=== PATIENT | female | born 1930 | race Caucasian/White ===

== ENCOUNTER 2019-07-01 16:42 | Inpatient (IN) | payer MEDICARE ==
[~2019-07-01] VITALS: Ht 162.6 cm; Wt 65.1 kg
--- OUTSIDE RECORDS SUMMARY | 2019-07-01 16:52 | XMS REPORT | Summary of Care ---
Author Author Betsy Rangel M.A. Unknown Address Unknown Phone Unavailable Care Team Providers Care Clockmaker Apprentice Name Role Phone ARYA Chew, MC Unavailable Unavailable NICOLA JAIN M.D., YESSY Unavailable Unavailable ROSARIO Chew, AMBER Unavailable Unavailable ADILENE BERNSTEIN, MARY BROWN Unavailable Unavailable COLTON Chew, YANI Unavailable Unavailable ОЛЕГ BERNSTEIN, GORDY Unavailable Unavailable Unavailable Unavailable Functional Status Name Dates Details Functional status health issues are not documented Status: Name Dates Details Cognitive status health issues are not documented Status: Problems Name Dates Details 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 Active Vitamin B12 TABS TAKE 1 TABLET DAILY DIRECTED. * Refills: 0 Active Vitamin D CAPS TAKE 1 CAPSULE DAILY * Refills: 0 Active Folic Acid 1 MG Oral Tablet TAKE 1 TABLET DAILY. * Refills: 0 Active Synthroid 200 MCG Oral Tablet TAKE 1 TABLET DAILY. * Refills: 0 Active Methotrexate 2.5 MG Oral Tablet TAKE 8 TABLET DAILY * Refills: 0 Active predniSONE 5 MG Oral Tablet TAKE 1 TABLET DAILY * Refills: 0 Active Colchicine 0.6 MG Oral Tablet TAKE 1 TABLET DAILY DIRECTED. * Refills: 0 * Start : 06-Jul-2014 Active Clopidogrel Bisulfate 75 MG Oral Tablet TAKE 1 TABLET BY MOUTH DAILY * Quantity: 90 Refills: 1 MC KOENIG M.D. * Start : 02-Feb-2012 Active Edarbi 40 MG Oral Tablet TAKE 1 TABLET DAILY. * Refills: 0 YESSY CONNER M.D. * Start : 22-Jan-2017 Active Furosemide 20 MG Oral Tablet TAKE 1 TABLET EVERY MORNING * Quantity: 90 Refills: 1 MC KOENIG M.D. * Start : 22-Jan-2017 Active Valsartan 160 MG Oral Tablet TAKE 1 TABLET EVERY MORNING * Quantity: 30 Refills: 1 MC KOENIG M.D. * Start : 09-Apr-2017 Active Gabapentin 400 MG Oral Capsule * Refills: 0 * Start : 05-Aug-2017 Active Sertraline HCl - 50 MG Oral Tablet * Refills: 0 Active Allergies and Adverse Reactions Name Dates Details Erythromycin Derivatives (Allergy) Status: Active Penicillins (Allergy) Status: Active Past Medical History Name Dates Details History of carotid artery stenosis (V12.59, Z86.79) Status: Resolved History of essential hypertension (V12.59, Z86.79) Status: Resolved History of hypothyroidism (V12.29, Z86.39) Status: Resolved History of mitral valve prolapse (V12.59, Z86.79) Status: Resolved History of Renal Insufficiency (593.9) Status: Resolved History of Rheumatoid arthritis (714.0, M06.9) Status: Resolved History of Stroke syndrome Status: Resolved Procedures Procedure Dates Details History of Knee Surgery Right Completed Immunization Name Dates Details Immunizations not documented Family History Name Dates Details Family history of Cancer Comments: Family History Status: Active Name Dates Details Family history of Hypertension (V17.49) Status: Active Social History Name Dates Details Unknown if ever smoked Vital Signs Date Test Result Details :20 BP Systolic 172 mm[Hg] Status: Comments: Location: [facility]; Position: Sitting BP Diastolic 94 mm[Hg] Status: Comments: Location: [facility]; Position: Sitting :19 BP Systolic 170 mm[Hg] Status: Comments: Location: [facility]; Position: Sitting BP Diastolic 80 mm[Hg] Status: Comments: Location: [facility]; Position: Sitting Height 65 in Status: Weight 161 lb Status: Body Mass Index Calculated 26.79 kg/m2 Status: Body Surface Area Calculated 1.8 m2 Status: Heart Rate 92 /min Status: Results Date Description Value Details Results not documented Plan of Care Name Dates Details Planned Observations Planned Goals not documented Interventions Provided Discussion/Summary* PLAN: * Ms. HARRY MALONEY is an 89-yo F h/o HTN, HLD, CVA 2008, nonobstructive carotid disease, RA who presents for follow up. * 1. Hypertension * -continue valsartan 160 daily, azilsartan?? * 2. Carotid Artery Disease (30% LEONARD & 50% LICA by angio in 2015) * -continue asa, plavix, ??statin?? * 3. DLP * -LDL? * -statin? * ??PPM * RTC 6 mo Instructions Name Dates Details Instructions not documented Encounters Appointment; MC KOENIG M.D. Encounter Diagnosis: Problem not documented On: 24-Jun-2017 9:10 Appointment; MC KOENIG M.D. Encounter Diagnosis: Problem not documented On: 05-Aug-2017 9:30 Appointment; MC KOENIG M.D. Encounter Diagnosis: Problem not documented On: 16-Dec-2017 14:00 Appointment; MC KOENIG M.D. Encounter Diagnosis: Problem not documented On: 22-Mar-2018 10:40 Appointment; MC KOENIG M.D. Encounter Diagnosis: Problem not documented On: 19-Jul-2018 9:40 Appointment; AMBER PONCE M.D. Encounter Diagnosis: Problem not documented On: 25-Nov-2018 9:40 Appointment; AMBER PONCE M.D. Encounter Diagnosis: Problem not documented On: 21-Mar-2019 15:00
[2019-07-01 18:11] LABS: BASOPHILS % 0.3 % (0.0-1.0); EOSINOPHILS # (AUTO) 0.2 (0.0-0.4); EOSINOPHILS % 1.6 % (0.0-6.0); HEMATOCRIT 25.9 % (34.2-44.1); HEMOGLOBIN 8.1 g/dL (12.0-16.0); LYMPHOCYTES # (AUTO) 0.8 (1.0-3.2); MEAN CORPUSCULAR HEMOGLOBIN 34.5 pg (28-32); MEAN CORPUSCULAR HGB CONC 31.3 g/dL (31-35); MEAN CORPUSCULAR VOLUME 110.2 fL (81-99); MONOCYTES # (AUTO) 0.7 (0.2-0.8); MONOCYTES % 5.3 % (4.4-11.3); NEUTROPHILS % 86.3 % (38.7-80.0); PLATELET COUNT 224 x10e3/uL (140-360); RED BLOOD COUNT 2.35 x10e6/uL (3.6-5.1); RED CELL DISTRIBUTION WIDTH 15.7 % (11.7-14.4)
--- NOTE | 2019-07-01 18:18 | Diagnostic Imaging Report ---
EXAMINATION: CHEST SINGLE (PORTABLE) INDICATION: Shortness of breath. Kidney failure ^ERMD ORDER ^[id number] ^1750 ^Y COMPARISON: None FINDINGS: TUBES and LINES: None. LUNGS: Ill-defined opacity most pronounced in the left lung could be due to developing pneumonia in the appropriate clinical context. PLEURA: No pleural effusion or pneumothorax. HEART AND MEDIASTINUM: Tortuous thoracic aorta. Heart prominent in size. BONES AND SOFT TISSUES: No acute osseous lesion. Soft tissues are unremarkable. UPPER ABDOMEN: No free air under the diaphragm. IMPRESSION: Ill-defined opacity most pronounced in the left lung could be due to developing pneumonia in the appropriate clinical context. Tortuous thoracic aorta. Heart prominent in size Signed by: Dr. Siva Carrasco M.D. on 07/01/2019 6:15 PM
[2019-07-01 18:21] LABS: INR 1.4; PROTHROMBIN TIME 18.1 seconds (11.9-14.5)
[2019-07-01 18:22] LABS: PARTIAL THROMBOPLASTIN TIME 35.2 seconds (23.8-35.5)
[2019-07-01 18:24] LABS: CLARITY,URINE SL CLOUDY (CLEAR); COLOR,URINE YELLOW (YELLOW); LEUKOCYTE ESTERASE ,URINE MODERATE (NEGATIVE); NITRITE,URINE NEGATIVE (NEGATIVE)
[2019-07-01 18:25] LABS: BILIRUBIN,URINE NEGATIVE (NEGATIVE); KETONES,URINE NEGATIVE (NEGATIVE); PROTEIN,URINE DIPSTICK NEGATIVE (NEGATIVE); URINE UROBILINOGEN 0.2 mg/dL (0.2 - 1)
[2019-07-01 18:30] LABS: ALBUMIN 2.4 g/dL (3.5-5.0); ALBUMIN/GLOBULIN RATIO 0.6 (0.8-2.0); ANION GAP 12.3 mmol/L (8-16); CALCIUM 8.8 mg/dL (8.4-10.2); CREATININE, SERUM 2.47 mg/dL (0.57-1.11); POTASSIUM 3.3 mmol/L (3.5-5.1)
[2019-07-01 18:36] LABS: CREATINE KINASE MB 3.4 ng/mL (0-5.0)
[2019-07-01 18:43] LABS: BACTERIA,URINE MANY /HPF; WBC,URINE (MAN) >50 /HPF (0-5)
[2019-07-01] MEDS ORDERED: VANCOMYCIN 1GM/NS 250 ML 250 ML IV STA (18:51)
[2019-07-01] MEDS ORDERED: CEFEPIME HCL 1 GM VIAL IV SCH (19:00)
--- NOTE | 2019-07-01 19:01 | NUR ---
report given to Chaim DURAN
[2019-07-01] MEDS: CEFEPIME 1GM/NS 0.9% 50 ML 50 ML IV SCH (19:23)
[2019-07-01] MEDS ORDERED: SYNTHROID100 MCG PO (20:24)
[2019-07-01] MEDS ORDERED: PLAVIX75 MG PO (20:24)
[2019-07-01] MEDS ORDERED: AMLODIPINE BESY10 MG PO (20:24)
[2019-07-01] MEDS ORDERED: MIRTAZAPINE15 MG PO (20:24)
[2019-07-01] MEDS ORDERED: ASPIRIN CHEW81 MG PO (20:24)
[2019-07-01] MEDS ORDERED: AMIODARONE HCL200 MG PO (20:24)
[2019-07-01] MEDS ORDERED: GABAPENTIN300 MG PO (20:24)
[2019-07-01] MEDS ORDERED: CARVEDILOL12.5 MG PO (20:24)
[2019-07-01] MEDS ORDERED: ALLOPURINOL100 MG PO (20:24)
[2019-07-01] MEDS ORDERED: ELIQUIS5 MG PO (20:24)
[2019-07-01] MEDS ORDERED: SERTRALINE HCL50 MG PO (20:35)
[2019-07-01] MEDS ORDERED: POTASSIUM CHLO20 ME2 PO (20:35)
[2019-07-01] MEDS ORDERED: PREDNISONE5 MG PO (20:35)
--- NOTE | 2019-07-01 21:40 | NUR ---
Patient arrived to the unit from ED as a new admit (dx of HCAP, Renal Failure, UTI). Pt confused and alert only to self or non at all. Unable to answer questions correctly and attempting to pull out medical devices (e.g. IV, Ashraf. tele monitor, etc.). Will attempt to call Dr. Fraser to obtain agitation med orders and possibly a sitter order to preserve patient's safety. Bed alarm active (level 2). Will monitor closely.
[2019-07-01 21:50] VITALS: BP 133/67
[2019-07-01 22:00] VITALS: BP 133/67
--- NOTE | 2019-07-01 22:16 | NUR ---
Spoke with Dr. Fraser and informed about patient's confused condition and attempting to remove medical devices. MD aware and ordered sitter (1:1 care) and Ativan 0.5 mg IV Q4hr prn. Staff Nuclear Weapons Officer (Lily) aware and already called in Concetta Tarango (PERFUMER) to sit with pt tonight.
[2019-07-01] MEDS: LORAZEPAM INJ 2 MG/ML VIAL IV PRN (22:45)
[2019-07-02] VITALS (8 sets, daily range): BP systolic 92–122; BP diastolic 46–65
[2019-07-02 04:14] LABS: CREATINE KINASE MB 3.2 ng/mL (0-5.0)
[2019-07-02] MEDS: LEVOTHYROXINE SODIUM 100 MCG TAB PO SCH (06:00)
--- NOTE | 2019-07-02 07:30 | NUR ---
PATIENT IN BED RESTING WITH NO S/S OF DISTRESS. O2 IN PLACE VIA N/C. 1:1 SITTER AT BED SIDE. TURNER CATHETER WITH CLOUDY URINE. BED IN LOWER POSITION, CALL LIGHT AT REACH.
[2019-07-02] MEDS ORDERED: SODIUM CHLORIDE 0.9% 250ML 250 ML ONE (09:33)
[2019-07-02] MEDS: CLOPIDOGREL BISULFATE 75 MG TAB PO SCH (09:50)
[2019-07-02] MEDS: SERTRALINE HCL 50 MG TAB PO SCH (09:50)
[2019-07-02] MEDS: CEFEPIME 1GM/NS 0.9% 50 ML 50 ML IV SCH ×2 (09:50→20:48)
[2019-07-02] MEDS: ASPIRIN 81 MG CHEW TAB PO SCH (09:50)
[2019-07-02] MEDS: AMIODARONE HCL 200 MG TAB PO SCH ×2 (09:50→17:00)
[2019-07-02] MEDS: APIXABAN 5 MG TABLET PO SCH ×2 (09:50→17:00)
[2019-07-02] MEDS: PREDNISONE 5 MG TAB PO SCH (09:50)
[2019-07-02] MEDS: ALLOPURINOL 100 MG TAB PO SCH (09:50)
--- NOTE | 2019-07-02 11:17 | NUR ---
PATIENT IN BED RESTING WITH NO S/S OF DISCOMFORT. 1:1 SITTER AT BED SIDE.
[2019-07-02 11:36] LABS: BASOPHILS % 0.3 % (0.0-1.0); EOSINOPHILS # (AUTO) 0.5 (0.0-0.4); EOSINOPHILS % 4.5 % (0.0-6.0); HEMATOCRIT 23.7 % (34.2-44.1); HEMOGLOBIN 7.4 g/dL (12.0-16.0); LYMPHOCYTES # (AUTO) 0.7 (1.0-3.2); LYMPHOCYTES % 6.9 % (18.0-39.1); MEAN CORPUSCULAR HEMOGLOBIN 34.1 pg (28-32); MEAN CORPUSCULAR HGB CONC 31.2 g/dL (31-35); MEAN CORPUSCULAR VOLUME 109.2 fL (81-99); MONOCYTES # (AUTO) 0.7 (0.2-0.8); MONOCYTES % 7.3 % (4.4-11.3); NEUTROPHILS # (AUTO) 8.1 (2.1-6.9); NEUTROPHILS % 80.5 % (38.7-80.0); PLATELET COUNT 206 x10e3/uL (140-360); RED BLOOD COUNT 2.17 x10e6/uL (3.6-5.1); RED CELL DISTRIBUTION WIDTH 15.6 % (11.7-14.4)
[2019-07-02 12:00] LABS: CREATINE KINASE MB 2.7 ng/mL (0-5.0)
[2019-07-02 12:17] LABS: ALBUMIN 2.2 g/dL (3.5-5.0); ALBUMIN/GLOBULIN RATIO 0.6 (0.8-2.0); ANION GAP 12.9 mmol/L (8-16); CALCIUM 8.4 mg/dL (8.4-10.2); CREATININE, SERUM 2.23 mg/dL (0.57-1.11); MAGNESIUM 1.9 MG/DL (1.3-2.1)
[2019-07-02 12:18] LABS: POTASSIUM 2.9 mmol/L (3.5-5.1)
[2019-07-02] MEDS ORDERED: SODIUM CHLORIDE 0.9% 1000ML 1,000 ML ONE (13:19)
[2019-07-02] MEDS ORDERED: POTASSIUM CHLORIDE 10MEQ/100ML 100 ML IV ONE ×4 (13:30→19:30)
--- NOTE | 2019-07-02 15:29 | NUR ---
SPOKE WITH MD REGARDING ABNORMAL POTASSIUM LEVEL. NEW ORDER RECEIVED AND IMPLEMENTED.
--- NOTE | 2019-07-02 17:02 | NUR ---
Nutrition Screen Note RD Recommendation for Physician: -Continue cardiac diet as ordered -If PO continues <50% for the next 2 days, rec Ensure Enlive BID to increase protein-calorie intake if pt is agreeable -Rec MVI w/ vitamin C for wound healing (if stage II pressure wound is confirmed by wound care team) Plan of Care: RD following, monitoring for tolerance and adequacy Nutrition reason for involvement: Diagnosis - Stage II sacral wound Primary Diagnose(s): HCAP, renal failure PMH: none indicated in chart Ht: 64in Wt: 118lb BMI: 20.3kg/m2 IBW: 120lb +/- 10% RD Assessment: (07/01) Chart reviewed. Labs and meds reviewed. 89yo F, who was admitted for HCAP and renal failure. K was low at 2.9 and pt received KCl. Visited pt in the room. Pt was asleep. Per RN, pt was confused, agitated and refused meals. Sitter was present on bedside. No vomiting episode noted. Wound was consulted for stage II sacral ulcer. Will need to re-assess pt when her mental status improved. Please consult as needed. Current Diet: ADA diet Malnutrition Evaluation (07/02/19) The patient does not meet criteria for a specified degree of malnutrition at this time. Will re-evaluate at follow-up as appropriate. Diet Education Needs Assessment: Diet education not indicated. Nutrition Care Level: low Signed: Liz Mukherjee, MS, RD, LD
--- NOTE | 2019-07-02 19:00 | NUR ---
Recieved pt in bed alseep, easily arousable. no s/sx of distress noted. IV K+ infusing w/o difficulty. Ashraf cath patent and below bladder, bed low, call mejia in reach.
[2019-07-02] MEDS: GABAPENTIN 300 MG CAP PO SCH (20:26)
[2019-07-02] MEDS: MIRTAZAPINE 15 MG TAB PO SCH (20:26)
--- NOTE | 2019-07-02 21:11 | NUR ---
Pt awake in bed, asking for fried pork chops and green beans. Fed per staff dinner hector marie w/o diff
--- NOTE | 2019-07-02 22:14 | NUR ---
Recieved call from pt granddaughter, per family pt is to be DNR. Granddaughter to notify POA ([place], Opal daughter / Ash, Huy son) to fax paperwork (POA) and to request DNR change. will notify md in am
[2019-07-02] MEDS: LORAZEPAM INJ 2 MG/ML VIAL IV PRN (23:40)
[2019-07-03] VITALS (8 sets, daily range): BP systolic 107–135; BP diastolic 41–72
[2019-07-03] MEDS: LEVOTHYROXINE SODIUM 100 MCG TAB PO SCH (05:29)
--- NOTE | 2019-07-03 07:23 | NUR ---
ASSUMED CARE. RESTING IN BED WITH EYES CLOSED. ACYANOTIC. BILATERAL RISE AND FALL OF CHEST NOTED WITH EACH RESPIRATION. NO DISTRESS NOTED. BED ALARM ARMED.
[2019-07-03 07:37] LABS: BASOPHILS # (AUTO) 0.1 (0.0-0.1); BASOPHILS % 0.6 % (0.0-1.0); EOSINOPHILS # (AUTO) 0.5 (0.0-0.4); HEMATOCRIT 24.8 % (34.2-44.1); HEMOGLOBIN 7.6 g/dL (12.0-16.0); LYMPHOCYTES # (AUTO) 0.9 (1.0-3.2); MEAN CORPUSCULAR HEMOGLOBIN 34.7 pg (28-32); MEAN CORPUSCULAR HGB CONC 30.6 g/dL (31-35); MEAN CORPUSCULAR VOLUME 113.2 fL (81-99); MONOCYTES # (AUTO) 0.9 (0.2-0.8); MONOCYTES % 8.4 % (4.4-11.3); NEUTROPHILS # (AUTO) 8.3 (2.1-6.9); NEUTROPHILS % 77.5 % (38.7-80.0); PLATELET COUNT 204 x10e3/uL (140-360); RED BLOOD COUNT 2.19 x10e6/uL (3.6-5.1); RED CELL DISTRIBUTION WIDTH 15.9 % (11.7-14.4)
[2019-07-03 07:57] LABS: ALBUMIN 2.2 g/dL (3.5-5.0); ALBUMIN/GLOBULIN RATIO 0.6 (0.8-2.0); ANION GAP 11.6 mmol/L (8-16); CALCIUM 8.7 mg/dL (8.4-10.2); CREATININE, SERUM 2.01 mg/dL (0.57-1.11); MAGNESIUM 1.9 MG/DL (1.3-2.1); POTASSIUM 3.6 mmol/L (3.5-5.1)
[2019-07-03] MEDS: CEFEPIME 1GM/NS 0.9% 50 ML 50 ML IV SCH ×2 (10:00→22:26)
[2019-07-03] MEDS: SERTRALINE HCL 50 MG TAB PO SCH (10:00)
[2019-07-03] MEDS: ALLOPURINOL 100 MG TAB PO SCH (10:00)
[2019-07-03] MEDS: AMIODARONE HCL 200 MG TAB PO SCH ×2 (10:00→16:38)
[2019-07-03] MEDS: PREDNISONE 5 MG TAB PO SCH (10:00)
[2019-07-03] MEDS: ASPIRIN 81 MG CHEW TAB PO SCH (10:00)
[2019-07-03] MEDS: CLOPIDOGREL BISULFATE 75 MG TAB PO SCH (10:00)
[2019-07-03] MEDS: APIXABAN 5 MG TABLET PO SCH ×2 (10:00→17:13)
--- NOTE | 2019-07-03 19:24 | NUR ---
REPORT RECEIVED BY ONCOMING NURSE.
--- NOTE | 2019-07-03 19:25 | NUR ---
RECEIVED REPORT FROM DAY NURSE. PATIENT IS RESTING COMFORTABLY IN THE BED. BED IS IN THE LOWEST POSITION AND CALL LIGHT IS WITHIN REACH. WILL CONTINUE TO MONITOR PATIENT.
[2019-07-03] MEDS: GABAPENTIN 300 MG CAP PO SCH (22:26)
[2019-07-03] MEDS: MIRTAZAPINE 15 MG TAB PO SCH (22:26)
[2019-07-04] VITALS (7 sets, daily range): BP systolic 105–124; BP diastolic 43–89
[2019-07-04 05:44] LABS: BASOPHILS % 0.4 % (0.0-1.0); EOSINOPHILS # (AUTO) 0.4 (0.0-0.4); EOSINOPHILS % 4.7 % (0.0-6.0); HEMOGLOBIN 7.6 g/dL (12.0-16.0); LYMPHOCYTES # (AUTO) 0.8 (1.0-3.2); MEAN CORPUSCULAR HEMOGLOBIN 34.1 pg (28-32); MEAN CORPUSCULAR HGB CONC 30.4 g/dL (31-35); MEAN CORPUSCULAR VOLUME 112.1 fL (81-99); MONOCYTES # (AUTO) 0.6 (0.2-0.8); MONOCYTES % 6.2 % (4.4-11.3); NEUTROPHILS # (AUTO) 7.4 (2.1-6.9); NEUTROPHILS % 79.2 % (38.7-80.0); PLATELET COUNT 226 x10e3/uL (140-360); RED BLOOD COUNT 2.23 x10e6/uL (3.6-5.1); RED CELL DISTRIBUTION WIDTH 15.9 % (11.7-14.4)
[2019-07-04 06:02] LABS: ALBUMIN 2.1 g/dL (3.5-5.0); ALBUMIN/GLOBULIN RATIO 0.5 (0.8-2.0); ALKALINE PHOSPHATASE 46 IU/L (40-150); ANION GAP 9.8 mmol/L (8-16); BLOOD UREA NITROGEN 37 mg/dL (7-26); BUN/CREATININE RATIO 20 (6-25); CALCIUM 8.9 mg/dL (8.4-10.2); CARBON DIOXIDE 30 mmol/L (22-29); CHLORIDE 112 mmol/L (98-107); CREATININE, SERUM 1.82 mg/dL (0.57-1.11); EST GLOMERULAR FILTRATION RATE 26 ML/MIN (60-); GLUCOSE 94 mg/dL (74-118); MAGNESIUM 2.1 MG/DL (1.3-2.1); POTASSIUM 3.8 mmol/L (3.5-5.1); SODIUM 148 mmol/L (136-145)
[2019-07-04] MEDS: LEVOTHYROXINE SODIUM 100 MCG TAB PO SCH (06:02)
[2019-07-04 06:04] LABS: ALANINE AMINOTRANSFERASE < 6 IU/L (0-55)
--- NOTE | 2019-07-04 06:28 | NUR ---
PATIENT IS RESTING IN BED. BED IS IN LOWEST POSITION AND CALL LIGHT IS WITHIN REACH.
--- NOTE | 2019-07-04 07:24 | NUR ---
PATIENT IN BED RESTING WITH EYES CLOSED, NO DISTRESS NOTED. TURNER CATHETER DRAINING YELLOW URINE. BED IN LOWER POSITION, CALL LIGHT AT REACH.
[2019-07-04] MEDS: CEFEPIME 1GM/NS 0.9% 50 ML 50 ML IV SCH ×2 (09:23→20:50)
[2019-07-04] MEDS: ASPIRIN 81 MG CHEW TAB PO SCH (09:23)
[2019-07-04] MEDS: AMIODARONE HCL 200 MG TAB PO SCH ×2 (09:23→17:21)
[2019-07-04] MEDS: APIXABAN 5 MG TABLET PO SCH ×2 (09:24→17:21)
[2019-07-04] MEDS: PREDNISONE 5 MG TAB PO SCH (09:24)
[2019-07-04] MEDS: SERTRALINE HCL 50 MG TAB PO SCH (09:24)
[2019-07-04] MEDS: FLUCONAZOLE 100 MG TAB PO SCH (09:24)
[2019-07-04] MEDS: CLOPIDOGREL BISULFATE 75 MG TAB PO SCH (09:24)
[2019-07-04] MEDS: ALLOPURINOL 100 MG TAB PO SCH (09:24)
--- NOTE | 2019-07-04 11:02 | NUR ---
PATIENT REPOSITIONED IN BED, HEEL PROTECTORS REAPPLIED. CALL LIGHT AT REACH.
--- NOTE | 2019-07-04 13:11 | NUR ---
WOUND CARE CONSULT FOR 89 YO FEMALE HX OF HCAP , RENAL FAILURE GIOVANY 16 ON MODERATE PUP STATUS AND INTERVENTIONS AND ALTERNATING PRESSURE MATTRESS LABS: WBC-9.35 HGB_7.6 GLUCOSE-94 SKIN ASSESSMENT COMPLETE PATIENT PRESENTS WITH LEFT HEEL UNSTAGEABLE ULCERATION MEASURES 8CM X 6CM DARK BLACK ESCHAR 90 % YELLOW SLOUGH 10 % SLIGHT SERO SANG DRAINAGE SACRAL STAGE 2 ULCERATION 3CM X 1.5CM X .2 CM SOME YELLOW SLOUGH NOTED TO WOUND BED RECOMMENDATIONS: NURSING TO CONTINUE TO MAINTAIN MODERATE PUP STATUS AND INTERVENTIONS AND ALTERNATING PRESSURE MATTRESS NURSING TO CONTINUE TO ASSIST PATIENT OUT OF BED FOR MEALS AND MUCH TOLERATED NURSING TO CONTINUE TO ASSIST PATIENT NEEDED WITH MEALS AND NUTRITIONAL SUPPLEMENTS TO ENSURE PROPER REQUIREMENTS FOR HEALING NURSING TO CONTINUE TO OFFLOAD FEET AND HEELS NEEDED WITH PILLOW SUSPENSION WHEN IN BED NURSING TO CLEAN LEFT HEEL UNSTAGEABLE ULCERATION AND SACRAL STAGE 2 ULCERATION WITH NORMAL SALINE DAILY AND APPLY SANTYL OINTMENT AND COVER WITH ALLEVYN FOAM DRESSING Addendum: 07/04/19 at 1319 by Kenny Gamino RN Amended: Links added.
--- NOTE | 2019-07-04 15:28 | NUR ---
PATIENT IN BED RESTING WITH NO S/S OF DISTRESS. CALL LIGHT AT REACH.
[2019-07-04] MEDS: COLLAGENASE OINTMENT 30 GM TUBE TP SCH (18:19)
[2019-07-04] MEDS: MIRTAZAPINE 15 MG TAB PO SCH (20:50)
[2019-07-04] MEDS: GABAPENTIN 300 MG CAP PO SCH (20:51)
[2019-07-04] MEDS: LORAZEPAM INJ 2 MG/ML VIAL IV PRN (22:12)
[2019-07-05] VITALS (7 sets, daily range): BP systolic 111–119; BP diastolic 37–64
[2019-07-05 05:49] LABS: BASOPHILS % 0.4 % (0.0-1.0); EOSINOPHILS # (AUTO) 0.6 (0.0-0.4); EOSINOPHILS % 6.4 % (0.0-6.0); HEMATOCRIT 23.1 % (34.2-44.1); HEMOGLOBIN 7.1 g/dL (12.0-16.0); LYMPHOCYTES # (AUTO) 0.9 (1.0-3.2); LYMPHOCYTES % 8.7 % (18.0-39.1); MEAN CORPUSCULAR HEMOGLOBIN 34.5 pg (28-32); MEAN CORPUSCULAR HGB CONC 30.7 g/dL (31-35); MEAN CORPUSCULAR VOLUME 112.1 fL (81-99); MONOCYTES # (AUTO) 0.7 (0.2-0.8); MONOCYTES % 7.4 % (4.4-11.3); NEUTROPHILS # (AUTO) 7.7 (2.1-6.9); NEUTROPHILS % 76.6 % (38.7-80.0); PLATELET COUNT 223 x10e3/uL (140-360); RED BLOOD COUNT 2.06 x10e6/uL (3.6-5.1); RED CELL DISTRIBUTION WIDTH 15.8 % (11.7-14.4)
[2019-07-05 06:06] LABS: ALANINE AMINOTRANSFERASE < 6 IU/L (0-55); ALBUMIN 1.9 g/dL (3.5-5.0); ALBUMIN/GLOBULIN RATIO 0.5 (0.8-2.0); ALKALINE PHOSPHATASE 43 IU/L (40-150); ANION GAP 10.8 mmol/L (8-16); CALCIUM 8.4 mg/dL (8.4-10.2); CARBON DIOXIDE 29 mmol/L (22-29); CHLORIDE 114 mmol/L (98-107); GLUCOSE 97 mg/dL (74-118); POTASSIUM 3.8 mmol/L (3.5-5.1); SODIUM 150 mmol/L (136-145)
[2019-07-05 06:17] LABS: BLOOD UREA NITROGEN 31 mg/dL (7-26); BUN/CREATININE RATIO 18 (6-25)
[2019-07-05] MEDS: LEVOTHYROXINE SODIUM 100 MCG TAB PO SCH (06:17)
--- NOTE | 2019-07-05 07:25 | NUR ---
PATIENT IN BED RESTING WITH NO S/S OF DISCOMFORT. HEEL PROTECTORS IN PLACE, CALL LIGHT AT REACH.
[2019-07-05] MEDS: CLOPIDOGREL BISULFATE 75 MG TAB PO SCH (09:03)
[2019-07-05] MEDS: SERTRALINE HCL 50 MG TAB PO SCH (09:03)
[2019-07-05] MEDS: APIXABAN 5 MG TABLET PO SCH ×2 (09:03→17:22)
[2019-07-05] MEDS: COLLAGENASE OINTMENT 30 GM TUBE TP SCH (09:03)
[2019-07-05] MEDS: PREDNISONE 5 MG TAB PO SCH (09:03)
[2019-07-05] MEDS: AMIODARONE HCL 200 MG TAB PO SCH ×2 (09:03→17:22)
[2019-07-05] MEDS: FLUCONAZOLE 100 MG TAB PO SCH (09:03)
[2019-07-05] MEDS: CEFEPIME 1GM/NS 0.9% 50 ML 50 ML IV SCH ×3 (09:03→21:00)
[2019-07-05] MEDS: ALLOPURINOL 100 MG TAB PO SCH (09:03)
[2019-07-05] MEDS: ASPIRIN 81 MG CHEW TAB PO SCH (09:03)
--- NOTE | 2019-07-05 10:59 | NUR ---
COMPLETE BED BATH GIVEN, LINEN CHANGED. PATIENT REPOSITIONED IN BED. CALL LIGHT AT REACH.
--- NOTE | 2019-07-05 15:20 | NUR ---
PATIENT NOTED WITH RASH TO PERINEAL AREA, MD NOTIFIED, NEW ORDER RECEIVED AND IMPLEMENTED.
[2019-07-05] MEDS: NYSTATIN 15 GM POWDER UD BTL TOP SCH (18:17)
--- NOTE | 2019-07-05 19:15 | NUR ---
Bedside report completed with morning nurse. Pt alert and oriented to name, lying in bed HOB 30 degrees. Denies pain at this time. Call light within reach. Bed low and locked.
[2019-07-05] MEDS: MIRTAZAPINE 15 MG TAB PO SCH ×2 (20:00→21:00)
[2019-07-05] MEDS: GABAPENTIN 300 MG CAP PO SCH (21:00)
[2019-07-06] VITALS: BP 121/80
[2019-07-06 05:59] LABS: BASOPHILS % 0.4 % (0.0-1.0); EOSINOPHILS # (AUTO) 0.8 (0.0-0.4); EOSINOPHILS % 8.4 % (0.0-6.0); HEMATOCRIT 24.7 % (34.2-44.1); HEMOGLOBIN 7.6 g/dL (12.0-16.0); LYMPHOCYTES # (AUTO) 1.2 (1.0-3.2); LYMPHOCYTES % 11.9 % (18.0-39.1); MEAN CORPUSCULAR HEMOGLOBIN 34.9 pg (28-32); MEAN CORPUSCULAR HGB CONC 30.8 g/dL (31-35); MEAN CORPUSCULAR VOLUME 113.3 fL (81-99); MONOCYTES # (AUTO) 0.8 (0.2-0.8); MONOCYTES % 7.8 % (4.4-11.3); NEUTROPHILS # (AUTO) 6.9 (2.1-6.9); PLATELET COUNT 232 x10e3/uL (140-360); RED BLOOD COUNT 2.18 x10e6/uL (3.6-5.1); RED CELL DISTRIBUTION WIDTH 15.6 % (11.7-14.4)
[2019-07-06] MEDS: LEVOTHYROXINE SODIUM 100 MCG TAB PO SCH (06:00)
[2019-07-06 06:23] LABS: ALANINE AMINOTRANSFERASE < 6 IU/L (0-55); ALBUMIN 1.9 g/dL (3.5-5.0); ALBUMIN/GLOBULIN RATIO 0.5 (0.8-2.0); ALKALINE PHOSPHATASE 47 IU/L (40-150); BLOOD UREA NITROGEN 25 mg/dL (7-26); BUN/CREATININE RATIO 15 (6-25); CALCIUM 8.6 mg/dL (8.4-10.2); CARBON DIOXIDE 30 mmol/L (22-29); CHLORIDE 114 mmol/L (98-107); CREATININE, SERUM 1.66 mg/dL (0.57-1.11); EST GLOMERULAR FILTRATION RATE 29 ML/MIN (60-); GLUCOSE 89 mg/dL (74-118); SODIUM 149 mmol/L (136-145)
--- NOTE | 2019-07-06 06:30 | NUR ---
Dr. Fraser new order ensure with meals and bedside swallow eval. Pt lying in bed quietly with eyes closed. No acute distress noted.
--- NOTE | 2019-07-06 07:00 | NUR ---
BEDSIDE SHIFT REPORT FROM CORPORATE PILOT RN. PT DENIES NEEDS AT THIS TIME.
[2019-07-06 08:10] VITALS: BP 105/55
[2019-07-06] MEDS: NYSTATIN 15 GM POWDER UD BTL TOP SCH (08:40)
[2019-07-06] MEDS: FLUCONAZOLE 100 MG TAB PO SCH (08:40)
[2019-07-06] MEDS: COLLAGENASE OINTMENT 30 GM TUBE TP SCH (08:40)
[2019-07-06] MEDS: ASPIRIN 81 MG CHEW TAB PO SCH (08:40)
[2019-07-06] MEDS: CLOPIDOGREL BISULFATE 75 MG TAB PO SCH (08:40)
[2019-07-06] MEDS: AMIODARONE HCL 200 MG TAB PO SCH ×2 (08:40→16:53)
[2019-07-06] MEDS: CEFEPIME 1GM/NS 0.9% 50 ML 50 ML IV SCH (08:40)
[2019-07-06] MEDS: SERTRALINE HCL 50 MG TAB PO SCH (08:40)
[2019-07-06] MEDS: APIXABAN 5 MG TABLET PO SCH ×2 (08:40→16:53)
[2019-07-06] MEDS: ALLOPURINOL 100 MG TAB PO SCH (08:40)
[2019-07-06] MEDS: PREDNISONE 5 MG TAB PO SCH (08:40)
[2019-07-06 09:36] VITALS: BP 105/55
[2019-07-06 11:52] VITALS: BP 110/57
[2019-07-06 16:36] VITALS: BP 147/71
--- NOTE | 2019-07-06 17:15 | NUR ---
CHANGED DIET TEXTURE PER RECOMMENDATIONS OF SPEECH THERAPY TO PUREED.
--- NOTE | 2019-07-06 19:20 | NUR ---
PATIENT RECEIVED INTO MY CARE, BSSR RECEIVED, PT SEEN LYING SUPINE IN BED, AOX1, LEFT SIDED WEAKNESS R/T PREVIOUS CVA NOTED, NO S/SX OF DISTRESS NOTED, BED ALARM ACTIVATED FOR SAFETY DURING ROUNDING, PATIENT REMAINS ON TELEMETRY FOR SAFETY, TURNER IN PLACE FOR URINARY RETENTION, PATIENT ABLE TO SWALLOW PILL CRUSHED WITH APPLESAUCE PER DAYSHIFT RN, BED IN LOWEST POSITION, CALL LIGHT WITHIN REACH
[2019-07-06 20:00] VITALS: BP 144/61
[2019-07-06] MEDS: GABAPENTIN 300 MG CAP PO SCH (20:00)
[2019-07-07] VITALS (12 sets, daily range): BP systolic 111–146; BP diastolic 44–65
[2019-07-07] MEDS: LEVOTHYROXINE SODIUM 100 MCG TAB PO SCH (05:16)
[2019-07-07 06:43] LABS: BASOPHILS % 0.4 % (0.0-1.0); EOSINOPHILS # (AUTO) 0.7 (0.0-0.4); HEMATOCRIT 24.4 % (34.2-44.1); HEMOGLOBIN 7.3 g/dL (12.0-16.0); LYMPHOCYTES % 12.5 % (18.0-39.1); MEAN CORPUSCULAR HEMOGLOBIN 33.8 pg (28-32); MEAN CORPUSCULAR HGB CONC 29.9 g/dL (31-35); MONOCYTES # (AUTO) 0.7 (0.2-0.8); MONOCYTES % 8.5 % (4.4-11.3); NEUTROPHILS # (AUTO) 5.8 (2.1-6.9); PLATELET COUNT 227 x10e3/uL (140-360); RED BLOOD COUNT 2.16 x10e6/uL (3.6-5.1); RED CELL DISTRIBUTION WIDTH 15.4 % (11.7-14.4)
--- NOTE | 2019-07-07 07:00 | NUR ---
BEDSIDE SHIFT REPORT FROM GAS DISTRIBUTION SUPERVISOR RN. PT DENIES NEEDS AT THIS TIME.
[2019-07-07 07:09] LABS: ALANINE AMINOTRANSFERASE < 6 IU/L (0-55); ALBUMIN 1.8 g/dL (3.5-5.0); ALBUMIN/GLOBULIN RATIO 0.5 (0.8-2.0); ALKALINE PHOSPHATASE 49 IU/L (40-150); BLOOD UREA NITROGEN 25 mg/dL (7-26); BUN/CREATININE RATIO 16 (6-25); CALCIUM 8.6 mg/dL (8.4-10.2); CARBON DIOXIDE 32 mmol/L (22-29); CHLORIDE 115 mmol/L (98-107); CREATININE, SERUM 1.55 mg/dL (0.57-1.11); EST GLOMERULAR FILTRATION RATE 32 ML/MIN (60-); GLUCOSE 86 mg/dL (74-118); SODIUM 149 mmol/L (136-145)
--- NOTE | 2019-07-07 07:37 | NUR ---
BEDSIDE SHIFT REPORT GIVEN TO CHAPO LEAD PONY RIDER RN. PT AOX1, NO S/SX OF DISTRESS/PAIN NOTED, SEEN SLEEPING, RESPIRATIONS EVEN AND UNLABORED, REMAIN Q2T TO PREVENT SKIN BREAKDOWN, HEELS FLOATED TO PREVENT SKIN BREAKDOWN, PRESSURE DRESSING TO COCCYX AREA IN PLACE, PT ENCOURAGED OVERNIGHT TO EAT AND DRINK FOR INCREASE NUTRITION; REFUSED TO EAT OR DRINK AT TIMES. CALL LIGHT WITHIN REACH, BED IN LOWEST POSITION
[2019-07-07] MEDS: PREDNISONE 5 MG TAB PO SCH (09:06)
[2019-07-07] MEDS: SERTRALINE HCL 50 MG TAB PO SCH (09:06)
[2019-07-07] MEDS: ALLOPURINOL 100 MG TAB PO SCH (09:06)
[2019-07-07] MEDS: COLLAGENASE OINTMENT 30 GM TUBE TP SCH (09:06)
[2019-07-07] MEDS: FLUCONAZOLE 100 MG TAB PO SCH (09:06)
[2019-07-07] MEDS: ASPIRIN 81 MG CHEW TAB PO SCH (09:06)
[2019-07-07] MEDS: CEFEPIME 1GM/NS 0.9% 50 ML 50 ML IV SCH ×2 (09:06→21:28)
[2019-07-07] MEDS: APIXABAN 5 MG TABLET PO SCH ×2 (09:06→17:03)
[2019-07-07] MEDS: NYSTATIN 15 GM POWDER UD BTL TOP SCH (09:06)
[2019-07-07] MEDS: CLOPIDOGREL BISULFATE 75 MG TAB PO SCH (09:06)
[2019-07-07] MEDS: AMIODARONE HCL 200 MG TAB PO SCH ×2 (09:06→17:03)
--- NOTE | 2019-07-07 20:00 | NUR ---
PATIENT REPOSITIONED IN BED TO INCREASE COMFORT LEVEL, REMAIN ON TELEMETRY WITH CONT PULSE OX . VSS, HEEL PROTECTORS REAPPLIED. CALL LIGHT AT REACH.
[2019-07-07] MEDS: MIRTAZAPINE 15 MG TAB PO SCH (21:29)
[2019-07-07] MEDS: GABAPENTIN 300 MG CAP PO SCH (21:29)
[2019-07-08] VITALS (9 sets, daily range): BP systolic 117–147; BP diastolic 57–83
--- NOTE | 2019-07-08 | NUR ---
PATIENT SEEN RESTING COMFORTABLY IN BED, AWAKE ALERT, NO DISTRESS NOTED, BED BATH GIVEN, RASH NOTED BILATERAL UNDERARM, LEFT SIDE OF NECK, REPOSITIONED ON LEFT SIDE, TOLERATED WELL CALL LIGHT WITHIN REACH, BED ALARM ACTIVATED
--- NOTE | 2019-07-08 06:02 | Progress Note ---
DATE: SUBJECTIVE: The patient did well overnight. No new issues. Still confused, which is apparently her baseline. OBJECTIVE: VITAL SIGNS: Temperature 97.8, pulse 60, blood pressure 117/58, sats 94%. GENERAL: She is in no apparent distress, lying in bed. CARDIOVASCULAR: Regular rate and rhythm. LUNGS: Clear to auscultation bilaterally. ABDOMEN: Good bowel sounds. Soft, nontender. EXTREMITIES: No clubbing or cyanosis. NEUROLOGIC: Moves all extremities x4. ASSESSMENT AND PLAN: 1. Urinary tract infection. Continue with antibiotics. 2. Chronic kidney disease stage 3. We will check a creatinine. 3. Anemia, stable. We will also check a CBC. 4. Hypernatremia. We will check her CMP, try to encourage the patient to drink more water. 5. Hypothyroidism. Continue with her medication. 6. Anxiety. Continue with her sertraline. 7. History of atrial fibrillation. Continue with her amiodarone. 8. Gout. Continue with her medication. Please see hospital chart for full details. MD SORAYA Katz/RENE /[id number]
[2019-07-08] MEDS: LEVOTHYROXINE SODIUM 100 MCG TAB PO SCH (06:28)
[2019-07-08 06:32] LABS: BASOPHILS % 0.4 % (0.0-1.0); EOSINOPHILS # (AUTO) 0.6 (0.0-0.4); EOSINOPHILS % 6.2 % (0.0-6.0); HEMATOCRIT 25.7 % (34.2-44.1); HEMOGLOBIN 7.7 g/dL (12.0-16.0); LYMPHOCYTES # (AUTO) 1.1 (1.0-3.2); LYMPHOCYTES % 10.4 % (18.0-39.1); MEAN CORPUSCULAR HEMOGLOBIN 33.9 pg (28-32); MEAN CORPUSCULAR VOLUME 113.2 fL (81-99); MONOCYTES # (AUTO) 0.7 (0.2-0.8); MONOCYTES % 7.3 % (4.4-11.3); NEUTROPHILS # (AUTO) 7.6 (2.1-6.9); NEUTROPHILS % 75.1 % (38.7-80.0); PLATELET COUNT 236 x10e3/uL (140-360); RED BLOOD COUNT 2.27 x10e6/uL (3.6-5.1); RED CELL DISTRIBUTION WIDTH 15.2 % (11.7-14.4)
--- NOTE | 2019-07-08 06:54 | NUR ---
BSSR GIVEN TO DAYSHIFT, PT SEEN RESTING IN BED, NO DISTRESS NOTED, BEDBOUND, BED ALARM ACTIVE, CALL LIGHT WITHIN REACH
[2019-07-08 06:55] LABS: ALBUMIN 1.8 g/dL (3.5-5.0); ALBUMIN/GLOBULIN RATIO 0.5 (0.8-2.0); ALKALINE PHOSPHATASE 49 IU/L (40-150); BLOOD UREA NITROGEN 31 mg/dL (7-26); BUN/CREATININE RATIO 19 (6-25); CALCIUM 8.7 mg/dL (8.4-10.2); CARBON DIOXIDE 31 mmol/L (22-29); CHLORIDE 116 mmol/L (98-107); CREATININE, SERUM 1.65 mg/dL (0.57-1.11); EST GLOMERULAR FILTRATION RATE 29 ML/MIN (60-); GLUCOSE 96 mg/dL (74-118); SODIUM 150 mmol/L (136-145)
[2019-07-08 06:56] LABS: ALANINE AMINOTRANSFERASE < 6 IU/L (0-55)
[2019-07-08] MEDS: AMIODARONE HCL 200 MG TAB PO SCH ×2 (10:57→16:29)
[2019-07-08] MEDS: CLOPIDOGREL BISULFATE 75 MG TAB PO SCH (10:57)
[2019-07-08] MEDS: FLUCONAZOLE 100 MG TAB PO SCH (10:57)
[2019-07-08] MEDS: SERTRALINE HCL 50 MG TAB PO SCH (10:57)
[2019-07-08] MEDS: APIXABAN 5 MG TABLET PO SCH ×2 (10:57→16:29)
[2019-07-08] MEDS: PREDNISONE 5 MG TAB PO SCH (10:57)
[2019-07-08] MEDS: NYSTATIN 15 GM POWDER UD BTL TOP SCH (10:57)
[2019-07-08] MEDS: CEFEPIME 1GM/NS 0.9% 50 ML 50 ML IV SCH ×2 (10:57→21:33)
[2019-07-08] MEDS: ALLOPURINOL 100 MG TAB PO SCH (10:57)
[2019-07-08] MEDS: ASPIRIN 81 MG CHEW TAB PO SCH (10:57)
[2019-07-08] MEDS: COLLAGENASE OINTMENT 30 GM TUBE TP SCH (10:57)
[2019-07-08] MEDS ORDERED: SODIUM CHLORIDE 0.9% 50ML 50 ML ONE (11:05)
--- NOTE | 2019-07-08 15:01 | NUR ---
WOUND CARE SCREENING CONSULT FOR 89 YO FEMALE HX OF HCAP , RENAL FAILURE GIOVANY 16 ON MODERATE PUP STATUS AND INTERVENTIONS AND ALTERNATING PRESSURE MATTRESS LABS: WBC-10.10 HGB_7.7 GLUCOSE-96 SKIN ASSESSMENT COMPLETE PATIENT PRESENTS WITH -LEFT HEEL UNSTAGEABLE ULCERATION MEASURES 8CM X 6CM DARK BLACK ESCHAR 95 % YELLOW SLOUGH 5% AND MINIMAL SERO SANG DRAINAGE -SACRAL STAGE 2 ULCERATION 3.1CM X 1.4CM X 0.2 CM RECOMMENDATIONS: CONINTINUE WITH CURRENT WOUND CARE ORDER IN PLACE: NURSING TO CONTINUE TO MAINTAIN MODERATE PUP STATUS AND INTERVENTIONS AND ALTERNATING PRESSURE MATTRESS NURSING TO CONTINUE TO ASSIST PATIENT OUT OF BED FOR MEALS AND MUCH TOLERATED NURSING TO CONTINUE TO ASSIST PATIENT NEEDED WITH MEALS AND NUTRITIONAL SUPPLEMENTS TO ENSURE PROPER REQUIREMENTS FOR HEALING NURSING TO CONTINUE TO OFFLOAD FEET AND HEELS NEEDED WITH PILLOW SUSPENSION WHEN IN BED NURSING TO CLEAN LEFT HEEL UNSTAGEABLE ULCERATION AND SACRAL STAGE 2 ULCERATION WITH NORMAL SALINE DAILY AND APPLY SANTYL OINTMENT AND COVER WITH ALLEVYN FOAM DRESSING. NURSING TO CONSULT WOUND CARE ORDERS NEEDED. Addendum: 07/08/19 at 1504 by Sol Kate RN Amended: Links added.
--- NOTE | 2019-07-08 16:37 | NUR ---
Nutrition Intervention Note RD Recommendation(s) for Physician: -Continue Ensure Enlive TID for added nutrition and recommend Eder BID to promote wound healing -Recommend multivitamin with vitamin C and zinc for wound healing -Continue current diet as ordered Plan of Care: RD following, monitoring for tolerance and adequacy Nutrition reason for involvement: follow up RD Assessment 07/07: Follow up. Chart reviewed. Pt is still confused per MD note. Pt has varied intake ranging from 25-100% of meals and has Ensure TID ordered. Per wound care note, pt has a left heel unstageable ulcer and stage 2 sacral pressure ulcer. Encourage meal and supplement intake. Will continue to monitor. (07/01) Chart reviewed. Labs and meds reviewed. 89yo F, who was admitted for HCAP and renal failure. K was low at 2.9 and pt received KCl. Visited pt in the room. Pt was asleep. Per RN, pt was confused, agitated and refused meals. Sitter was present on bedside. No vomiting episode noted. Wound was consulted for stage II sacral ulcer. Will need to re-assess pt when her mental status improved. Please consult as needed. Principal Problems/Diagnoses: HCAP, renal failure PMH: none indicated in chart GI: last recorded BM 07/06, liquid Skin: Per wound care note, pt has a left heel unstageable ulcer and stage 2 sacral pressure ulcer Labs: (07/07) Na 150, BUN 31, Creat 1.65 Meds: prednisone, levothyroxine Ht: 64 inches Wt: 142 lbs (07/06) 118 lbs (06/30) Suspect weight error BMI: 24.4 kg/m2 IBW: 120 lbs Malnutrition Evaluation (07/02/19) The patient does not meet criteria for a specified degree of malnutrition at this time. Will re-evaluate at follow-up as appropriate. Nutrition Prescription (Diet Order): cardiac diet with Ensure TID Estimated Nutritional Needs: 3505-4413 calories/day (25-35 kcal/kg CBW) 77-97 g protein/day (1.2-1.5 g pro/kg CBW) Diet Adequacy: Not meeting calorie needs, Not meeting protein needs Tolerance: Tolerating PO Diet Education Needs Assessment: Diet education is not indicated Nutrition Care Level: moderate Nutrition Diagnosis: Increased nutrient needs related to increased demand for protein and kcal as evidenced by left heel unstageable pressure ulcer and stage 2 sacral pressure ulcer. Goal: Patient will meet 75-100% of estimated needs by follow up Progress: Progressing Interventions: -fat/cholesterol/sodium -modified diet, Commercial beverage, Multivitamin/mineral supplement therapy Monitoring/Evaluation: -Total energy intake, Total protein intakeModified diet, Liquid supplement, Weight change Signed: Camren Patel RD, LD
[2019-07-08] MEDS: GABAPENTIN 300 MG CAP PO SCH (21:33)
[2019-07-08] MEDS: MIRTAZAPINE 15 MG TAB PO SCH (21:33)
[2019-07-09] VITALS (8 sets, daily range): BP systolic 106–138; BP diastolic 54–92
[2019-07-09] MEDS: LEVOTHYROXINE SODIUM 100 MCG TAB PO SCH (06:31)
--- NOTE | 2019-07-09 06:51 | NUR ---
BSSR GIVEN TO DAYSHIFT, PT SEEN RESTING IN BED, NO DISTRESS NOTED, BEDBOUND, BED ALARM ACTIVE, CALL LIGHT WITHIN REACH
--- NOTE | 2019-07-09 08:46 | Progress Note ---
DATE: SUBJECTIVE: The patient is an 89-year-old, who came in with community-acquired pneumonia, renal failure, urinary tract infection, and history of dementia. MEDICATIONS: Include allopurinol, amiodarone, apixaban, aspirin, cefepime, clopidogrel, fluconazole, mirtazapine, nystatin, prednisone, and sertraline. The patient also has a history of atrial fibrillation. OBJECTIVE: GENERAL: Currently, the patient is alert and oriented x1, arousable, but goes back to sleep. LUNGS: Positive for decreased air entry. CARDIOVASCULAR: The patient has S1, S2. Regular rate and rhythm. ABDOMEN: Nontender and nondistended. EXTREMITIES: No clubbing, no cyanosis, and/or no edema. ASSESSMENT: Community-acquired pneumonia. Continue with antibiotics. The patient is currently on cefepime. Atrial fibrillation, paroxysmal continue on Bactroban and amiodarone. Depression and dementia. Continue on sertraline. She also has a history of gout. We will continue allopurinol for that. Hypothyroidism, continue on levothyroxine. Further recommendation per clinical course. [facility] No COVID testing has been done for her. MD NICOLAS Gama/RENE /[id number]
[2019-07-09] MEDS: NYSTATIN 15 GM POWDER UD BTL TOP SCH (09:00)
[2019-07-09] MEDS: COLLAGENASE 5 GM TUBE TP SCH (09:00)
[2019-07-09] MEDS: ASPIRIN 81 MG CHEW TAB PO SCH (09:20)
[2019-07-09] MEDS: CLOPIDOGREL BISULFATE 75 MG TAB PO SCH (09:20)
[2019-07-09] MEDS: FLUCONAZOLE 100 MG TAB PO SCH (09:20)
[2019-07-09] MEDS: ALLOPURINOL 100 MG TAB PO SCH (09:20)
[2019-07-09] MEDS: APIXABAN 5 MG TABLET PO SCH ×2 (09:20→17:27)
[2019-07-09] MEDS: AMIODARONE HCL 200 MG TAB PO SCH ×2 (09:20→17:27)
[2019-07-09] MEDS: SERTRALINE HCL 50 MG TAB PO SCH (09:20)
[2019-07-09] MEDS: CEFEPIME 1GM/NS 0.9% 50 ML 50 ML IV SCH ×2 (09:21→21:43)
[2019-07-09] MEDS: GABAPENTIN 300 MG CAP PO SCH (21:43)
[2019-07-09] MEDS: MIRTAZAPINE 15 MG TAB PO SCH (21:43)
[2019-07-10] VITALS (7 sets, daily range): BP systolic 119–166; BP diastolic 60–84
[2019-07-10] MEDS: LEVOTHYROXINE SODIUM 100 MCG TAB PO SCH (05:38)
[2019-07-10] MEDS ORDERED: DEXTROSE 5%/0.9% SOD CHL 1,000 ML IV ONE (06:15)
--- NOTE | 2019-07-10 09:19 | Progress Note ---
DATE: SUBJECTIVE: The patient is an 89-year-old female, who came in with community-acquired pneumonia, urinary tract infection, history of dementia, and atrial fibrillation. Medications noted. OBJECTIVE: GENERAL: The patient is alert and oriented x1. The patient has profound dementia and is arousable, but goes back to sleep. VITAL SIGNS: Temperature is 98.8, pulse of 70, respirations of 18, blood pressure is , pulse oximetry of 97%. HEENT: Normocephalic and atraumatic. LUNGS: Positive for slight rhonchi. ABDOMEN: Nontender and nondistended. EXTREMITIES: Trace edema present. MICROBIOLOGY: Urine culture grew E. coli sensitive to pansensitive. LABORATORY VALUES: White count on 24 was 10.10, hemoglobin of 7.7, hematocrit 25.7. Chemistry shows sodium of . ASSESSMENT: Ms. Aleman with: 1. Community-acquired pneumonia. 2. Atrial fibrillation. 3. Urinary tract infection. 4. Dementia. 5. Hyponatremia. 6. Hypothyroidism. 7. Debility. PLAN: The patient is to be discharged back to her nursing facility. No COVID testing has been done. For hyponatremia, we are going to go ahead and give D5 . Recheck her labs. Also check her creatinine level. Anemia of chronic disease. Continue monitoring and chronic kidney disease. Check her BMP today. Further recommendation per clinical course. We will continue to monitor the patient. We will go and add labs for tomorrow. MD NICOLAS Gama/DEBL /[id number]
[2019-07-10] MEDS: AMIODARONE HCL 200 MG TAB PO SCH ×2 (09:33→16:49)
[2019-07-10] MEDS: ALLOPURINOL 100 MG TAB PO SCH (09:33)
[2019-07-10] MEDS: ASPIRIN 81 MG CHEW TAB PO SCH (09:33)
[2019-07-10] MEDS: FLUCONAZOLE 100 MG TAB PO SCH (09:33)
[2019-07-10] MEDS: SERTRALINE HCL 50 MG TAB PO SCH (09:33)
[2019-07-10] MEDS: CLOPIDOGREL BISULFATE 75 MG TAB PO SCH (09:33)
[2019-07-10] MEDS: APIXABAN 5 MG TABLET PO SCH ×2 (09:33→16:49)
[2019-07-10] MEDS: CEFEPIME 1GM/NS 0.9% 50 ML 50 ML IV SCH ×2 (09:33→21:12)
[2019-07-10] MEDS ORDERED: DEXTROSE 5% 1,000 ML IV ONE (09:45)
[2019-07-10] MEDS: COLLAGENASE 5 GM TUBE TP SCH (14:18)
[2019-07-10] MEDS: NYSTATIN 15 GM POWDER UD BTL TOP SCH (14:18)
[2019-07-10] MEDS: MIRTAZAPINE 15 MG TAB PO SCH (21:12)
[2019-07-10] MEDS: GABAPENTIN 300 MG CAP PO SCH (21:12)
[2019-07-11] VITALS (8 sets, daily range): BP systolic 108–155; BP diastolic 57–78
[2019-07-11] MEDS: LEVOTHYROXINE SODIUM 100 MCG TAB PO SCH (05:10)
[2019-07-11 05:14] LABS: BASOPHILS % 0.4 % (0.0-1.0); EOSINOPHILS % 9.8 % (0.0-6.0); HEMOGLOBIN 8.7 g/dL (12.0-16.0); LYMPHOCYTES # (AUTO) 1.2 (1.0-3.2); LYMPHOCYTES % 11.4 % (18.0-39.1); MEAN CORPUSCULAR HEMOGLOBIN 33.9 pg (28-32); MEAN CORPUSCULAR VOLUME 116.7 fL (81-99); MONOCYTES # (AUTO) 0.7 (0.2-0.8); MONOCYTES % 6.7 % (4.4-11.3); NEUTROPHILS # (AUTO) 7.4 (2.1-6.9); NEUTROPHILS % 70.8 % (38.7-80.0); PLATELET COUNT 258 x10e3/uL (140-360); RED BLOOD COUNT 2.57 x10e6/uL (3.6-5.1); RED CELL DISTRIBUTION WIDTH 14.8 % (11.7-14.4)
[2019-07-11] MEDS ORDERED: SODIUM CHLORIDE 0.9% 250ML 250 ML ONE (05:18)
[2019-07-11 05:50] LABS: ANION GAP 8.6 mmol/L (8-16); CALCIUM 8.9 mg/dL (8.4-10.2); CREATININE, SERUM 1.67 mg/dL (0.57-1.11); POTASSIUM 4.6 mmol/L (3.5-5.1)
--- NOTE | 2019-07-11 07:00 | NUR ---
RCD PT AT BED PT IS ALERT AND ORIENTED IN 1-3,PT RESTING ON BED NO SIGNS OF ANY DISTRESS NOTED IV PATENT BY SALINE FLUSH BED LOW AND LOCKED CALL LIGHT IN REACH
--- NOTE | 2019-07-11 07:12 | Progress Note ---
DATE: SUBJECTIVE: No change overnight, still confused. OBJECTIVE: VITAL SIGNS: Temperature 97.9, pulse 67, blood pressure 155/63, and sats 98%. GENERAL: No apparent distress, lying in bed, mumbles when I ask her questions, but she is awake and alert. CARDIOVASCULAR: Regular rate and rhythm. LUNGS: Clear to auscultation bilaterally. ABDOMEN: Good bowel sounds. Soft and nontender. EXTREMITIES: No clubbing or cyanosis. NEUROLOGIC: Moves all extremities x4. ASSESSMENT AND PLAN: 1. Hypernatremia. We will once again check her sodium levels and see if it is improved with the D5W. 2. Chronic kidney disease, stage 3. We will check a creatinine level. 3. Anemia. We will check a CBC. 4. Hypertension. Continue to monitor. 5. Gout. Continue with allopurinol. 6. History of atrial fibrillation. Continue with her amiodarone. 7. Hypothyroidism. Continue with her medication. Please see hospital chart for full details. MD SORAYA Katz/MODL /[id number]
[2019-07-11] MEDS: CEFEPIME 1GM/NS 0.9% 50 ML 50 ML IV SCH (09:00)
[2019-07-11] MEDS: AMIODARONE HCL 200 MG TAB PO SCH ×2 (09:00→16:36)
[2019-07-11] MEDS: COLLAGENASE 5 GM TUBE TP SCH (09:00)
[2019-07-11] MEDS: APIXABAN 5 MG TABLET PO SCH ×2 (09:00→16:36)
[2019-07-11] MEDS: ALLOPURINOL 100 MG TAB PO SCH (09:00)
[2019-07-11] MEDS: NYSTATIN 15 GM POWDER UD BTL TOP SCH (09:00)
[2019-07-11] MEDS: SERTRALINE HCL 50 MG TAB PO SCH (09:00)
[2019-07-11] MEDS: ASPIRIN 81 MG CHEW TAB PO SCH (09:00)
[2019-07-11] MEDS: CLOPIDOGREL BISULFATE 75 MG TAB PO SCH (09:00)
--- NOTE | 2019-07-11 10:16 | NUR ---
LONG-TERM FACILITY DISCHARGE INFORMATION PATIENT HAS BEEN ACCEPTED TO: NAME: ZACARIAS HERNANDEZ ADDRESS:[id number] [facility] [place] [facility] [employer] STEAM: NORMA HWANG MD: ROOM:[id number] NURSE CALL REPORT TO: [phone] IMM SIGNED AND OBTAINED (if applicable): IMM THE FOLLOWING DOCUMENTS MUST ACCOMPANY PATIENT FOR TRANSFER: COPIED CHART: PACKET
--- NOTE | 2019-07-11 10:55 | NUR ---
PAGED DR CHAVEZ AND NOTIFIED THE PT IS ACCEPTED BY [facility] ,CAN I GET THE DISCHARGE ORDER HE ASKE HOW MUCH IS THE SODIUM LEVEL ITS 147 HE SAID LETS WAIT ONE MORE DAY NOTIFIED THE ANIMAL RIDES MANAGER
--- NOTE | 2019-07-11 14:00 | NUR ---
DRESSING CHANGED ON THE LOWER SACRUM
--- NOTE | 2019-07-11 18:46 | NUR ---
PT RESTING ON BED BED SIDE REPORT GIVEN TO ONCOMING NURSE
[2019-07-11] MEDS: MIRTAZAPINE 15 MG TAB PO SCH (21:00)
[2019-07-11] MEDS: GABAPENTIN 300 MG CAP PO SCH (21:00)
[2019-07-12] VITALS (8 sets, daily range): BP systolic 103–132; BP diastolic 57–84
[2019-07-12 06:25] LABS: ALBUMIN 1.7 g/dL (3.5-5.0); ALBUMIN/GLOBULIN RATIO 0.4 (0.8-2.0); ALKALINE PHOSPHATASE 61 IU/L (40-150); ANION GAP 10.3 mmol/L (8-16); BLOOD UREA NITROGEN 36 mg/dL (7-26); BUN/CREATININE RATIO 22 (6-25); CALCIUM 8.8 mg/dL (8.4-10.2); CARBON DIOXIDE 27 mmol/L (22-29); CHLORIDE 115 mmol/L (98-107); CREATININE, SERUM 1.66 mg/dL (0.57-1.11); EST GLOMERULAR FILTRATION RATE 29 ML/MIN (60-); GLUCOSE 88 mg/dL (74-118); POTASSIUM 4.3 mmol/L (3.5-5.1); SODIUM 148 mmol/L (136-145)
[2019-07-12 06:33] LABS: ALANINE AMINOTRANSFERASE < 6 IU/L (0-55)
[2019-07-12] MEDS: LEVOTHYROXINE SODIUM 100 MCG TAB PO SCH (06:47)
--- NOTE | 2019-07-12 08:30 | NUR ---
informed Dr. Fraser NA level 148, orders received and entered
[2019-07-12] MEDS: ALLOPURINOL 100 MG TAB PO SCH (08:45)
[2019-07-12] MEDS: APIXABAN 5 MG TABLET PO SCH ×2 (08:45→16:57)
[2019-07-12] MEDS: ASPIRIN 81 MG CHEW TAB PO SCH (08:45)
[2019-07-12] MEDS: CLOPIDOGREL BISULFATE 75 MG TAB PO SCH (08:45)
[2019-07-12] MEDS: AMIODARONE HCL 200 MG TAB PO SCH ×2 (08:45→16:57)
[2019-07-12] MEDS: SERTRALINE HCL 50 MG TAB PO SCH (08:45)
[2019-07-12] MEDS: DEXTROSE 5% 1,000 ML IV SCH ×2 (08:45→21:16)
[2019-07-12] MEDS: NYSTATIN 15 GM POWDER UD BTL TOP SCH (08:45)
[2019-07-12] MEDS: COLLAGENASE 5 GM TUBE TP SCH (08:46)
--- NOTE | 2019-07-12 12:42 | NUR ---
ST Note: Attempted to see pt for dysphagia therapy. Pt sleeping, unable to maintain alertness. Will f/u later time permitting.
[2019-07-12] MEDS: MIRTAZAPINE 15 MG TAB PO SCH (21:15)
[2019-07-13] VITALS: BP 138/55
[2019-07-13 04:00] VITALS: BP 137/59
[2019-07-13 05:08] LABS: BASOPHILS % 0.5 % (0.0-1.0); EOSINOPHILS # (AUTO) 0.8 (0.0-0.4); EOSINOPHILS % 9.7 % (0.0-6.0); HEMATOCRIT 28.7 % (34.2-44.1); HEMOGLOBIN 8.6 g/dL (12.0-16.0); LYMPHOCYTES # (AUTO) 1.1 (1.0-3.2); LYMPHOCYTES % 13.6 % (18.0-39.1); MEAN CORPUSCULAR HEMOGLOBIN 33.9 pg (28-32); MONOCYTES # (AUTO) 0.7 (0.2-0.8); MONOCYTES % 7.9 % (4.4-11.3); NEUTROPHILS # (AUTO) 5.5 (2.1-6.9); NEUTROPHILS % 67.2 % (38.7-80.0); PLATELET COUNT 261 x10e3/uL (140-360); RED BLOOD COUNT 2.54 x10e6/uL (3.6-5.1); RED CELL DISTRIBUTION WIDTH 14.5 % (11.7-14.4)
[2019-07-13 05:31] LABS: ALBUMIN 1.9 g/dL (3.5-5.0); ALBUMIN/GLOBULIN RATIO 0.5 (0.8-2.0); ALKALINE PHOSPHATASE 65 IU/L (40-150); ANION GAP 8.4 mmol/L (8-16); BLOOD UREA NITROGEN 31 mg/dL (7-26); BUN/CREATININE RATIO 20 (6-25); CARBON DIOXIDE 29 mmol/L (22-29); CHLORIDE 110 mmol/L (98-107); CREATININE, SERUM 1.52 mg/dL (0.57-1.11); EST GLOMERULAR FILTRATION RATE 32 ML/MIN (60-); GLUCOSE 77 mg/dL (74-118); POTASSIUM 4.4 mmol/L (3.5-5.1); SODIUM 143 mmol/L (136-145)
[2019-07-13 05:32] LABS: ALANINE AMINOTRANSFERASE < 6 IU/L (0-55)
[2019-07-13] MEDS: LEVOTHYROXINE SODIUM 100 MCG TAB PO SCH (06:00)
--- NOTE | 2019-07-13 07:00 | NUR ---
BEDSIDE SHIFT REPORT RECEIVED FROM PM NURSE, PT IN STABLE CONDITION. WILL CONTINUE TO MONITOR.
--- NOTE | 2019-07-13 07:11 | Progress Note ---
DATE: SUBJECTIVE: The patient did well overnight. No new issues. Still not drinking very well. OBJECTIVE: VITAL SIGNS: Temperature 98.3, pulse 60, blood pressure 138/55, sats 96%. GENERAL: No apparent distress. CARDIOVASCULAR: Regular rate and rhythm. LUNGS: Decreased breath sounds bilaterally. ABDOMEN: Good bowel sounds. Soft, nontender. EXTREMITIES: No clubbing or cyanosis. NEUROLOGIC: Nonfocal. ASSESSMENT AND PLAN: 1. Hypernatremia and chronic kidney disease stage 3. We will check her labs. Hoping for improvement of her sodium with fluids. Once her sodium improves and I will be able to discharge her back to [facility] facility. 2. History of atrial fibrillation. Continue with her medication. 3. Hypothyroidism. Continue with her medication. 4. Gout. Continue with her medication. 5. Anemia. We will check a CBC. Please see hospital chart for full details. MD SORAYA Katz/RENE /[id number]
[2019-07-13 07:52] VITALS: BP 132/62
--- NOTE | 2019-07-13 08:02 | NUR ---
informed Dr. Fraser of pt's AM labs and asked if any other barriers to discharge. Dr. Fraser states he will likely discharge pt tomorrow.
[2019-07-13 08:15] VITALS: BP 132/62
[2019-07-13] MEDS: ASPIRIN 81 MG CHEW TAB PO SCH (10:16)
[2019-07-13] MEDS: APIXABAN 5 MG TABLET PO SCH (10:19)
[2019-07-13] MEDS: CLOPIDOGREL BISULFATE 75 MG TAB PO SCH (10:19)
[2019-07-13] MEDS: SERTRALINE HCL 50 MG TAB PO SCH (10:19)
[2019-07-13] MEDS: ALLOPURINOL 100 MG TAB PO SCH (10:19)
[2019-07-13] MEDS: AMIODARONE HCL 200 MG TAB PO SCH (10:19)
--- NOTE | 2019-07-13 13:00 | NUR ---
called report to RN at [facility].
[2019-07-13] MEDS: COLLAGENASE 5 GM TUBE TP SCH (13:01)
--- NOTE | 2019-07-16 11:08 | Discharge Summary ---
DISCHARGE DIAGNOSES: 1. Encephalopathy secondary to sepsis. 2. Chronic kidney disease, stage 3. 3. Sepsis secondary to urinary tract infection with Escherichia coli. 4. Anemia. 5. Hypernatremia. HISTORY OF PRESENT ILLNESS AND HOSPITAL COURSE: See hospital chart for full details. The patient was an elderly lady brought over from a nursing facility where she had noticed mental status changes that turned out to be secondary to sepsis from her urinary tract infection that grew out E coli. She is able to complete her antibiotic course. She did notice to have some decreased p.o. intake, where she started having an increasing sodium, but this improved with some D5W the fluids. Her anemia and chronic kidney disease stage 3, remains stable. The patient was then transferred back to a [facility] facility for further care. My concern is the patient has poor p.o. intake due to poor mentation, so high likelihood that she could return with failure to thrive type symptoms. Please see hospital chart for full details. MD SORAYA Katz/RENE /[id number]
--- NOTE | 2019-07-18 11:55 | Diagnostic Imaging Report ---
PROCEDURE: X-RAY MODIFIED BARIUM SWALLOW COMPARISON: None. INDICATION: Dysphagia Radiation Details: Fluoroscopy time: 2.6 minutes Cumulative dose: 7.0 mGy DISCUSSION: Fluoroscopic examination was performed in conjunction with speech pathology during swallowing a variety of thin and thick liquid consistencies. Provided images demonstrate laryngeal penetration and aspiration. CONCLUSION: Modified barium swallow demonstrating laryngeal penetration and aspiration. Please refer to the speech pathology report for further details. Signed by: Rashawn Caro MD on 07/18/2019 11:51 AM
== END 2019-07-13 14:04 | DRG 871 ==
LOC: ER 16:42 → ERHOLD 19:14 → MED/SURG2 22:01
PROVIDERS: ADMIT Internal Medicine; ATTEND Internal Medicine
DX: A41.51 Sepsis due to Escherichia coli [E. coli] (principal); J18.9 Pneumonia, unspecified organism; G93.41 Metabolic encephalopathy; N39.0 Urinary tract infection, site not specified; E87.0 Hyperosmolality and hypernatremia; N18.3 Chronic kidney disease, stage 3 (moderate); I12.9 Hypertensive chronic kidney disease with stage 1 through stage 4 chronic kidney disease, or unspecified chronic kidney disease; D64.9 Anemia, unspecified; R65.20 Severe sepsis without septic shock; E03.9 Hypothyroidism, unspecified; M10.9 Gout, unspecified; F03.90 Unspecified dementia, unspecified severity, without behavioral disturbance, psychotic disturbance, mood disturbance, and anxiety; I48.0 Paroxysmal atrial fibrillation; Z79.01 Long term (current) use of anticoagulants; F32.9 Major depressive disorder, single episode, unspecified; F41.9 Anxiety disorder, unspecified
CPT/HCPCS: 36415; 71045; 74230; 80048; 80053; 81001; 82550; 82553; 82948; 83605; 83735; 83880; 84295; 84484; 85025; 85610; 85730; 87040; 87086; 87186; 93005; 97139; 99251; 99285; J0692; J2060; J3370; J3480; J7030; J7042; J7050; J7070; J7512

== ENCOUNTER 2019-10-07 20:20 | Inpatient (IN) | payer MEDICARE, OTHER ==
[~2019-10-07] VITALS: Ht 162.6 cm; Wt 56.2 kg
[~2019-10-07 20:20] MED LIST: ALLOPURINOL100 MG PO; AMIODARONE HCL200 MG PO; AMLODIPINE BESY10 MG PO; ASPIRIN CHEW81 MG PO; CARVEDILOL12.5 MG PO; ELIQUIS5 MG PO; GABAPENTIN300 MG PO; MIRTAZAPINE15 MG PO; PLAVIX75 MG PO; POTASSIUM CHLO20 ME2 PO; PREDNISONE5 MG PO; SERTRALINE HCL50 MG PO; SYNTHROID100 MCG PO
[2019-10-07] MEDS ORDERED: SODIUM CHLORIDE 0.9% 1000ML 1,000 ML ONE (21:07)
[2019-10-07 21:12] LABS: BASOPHILS # (AUTO) 0.1 (0.0-0.1); BASOPHILS % 0.4 % (0.0-1.0); EOSINOPHILS # (AUTO) 0.3 (0.0-0.4); EOSINOPHILS % 2.5 % (0.0-6.0); HEMATOCRIT 27.2 % (34.2-44.1); HEMOGLOBIN 7.2 g/dL (12.0-16.0); LYMPHOCYTES # (AUTO) 1.2 (1.0-3.2); LYMPHOCYTES % 9.3 % (18.0-39.1); MEAN CORPUSCULAR HEMOGLOBIN 30.4 pg (28-32); MEAN CORPUSCULAR HGB CONC 26.5 g/dL (31-35); MEAN CORPUSCULAR VOLUME 114.8 fL (81-99); MONOCYTES # (AUTO) 0.8 (0.2-0.8); MONOCYTES % 6.2 % (4.4-11.3); PLATELET COUNT 222 x10e3/uL (140-360); RED BLOOD COUNT 2.37 x10e6/uL (3.6-5.1)
[2019-10-07 21:24] LABS: ALBUMIN 1.5 g/dL (3.5-5.0); ALBUMIN/GLOBULIN RATIO 0.3 (0.8-2.0); ANION GAP 18.2 mmol/L (8-16); CALCIUM 8.6 mg/dL (8.4-10.2); CREATININE, SERUM 6.32 mg/dL (0.57-1.11); POTASSIUM 4.2 mmol/L (3.5-5.1)
[2019-10-07 21:30] LABS: CREATINE KINASE MB 93.4 ng/mL (0-5.0)
[2019-10-07] MEDS: DEXTROSE 5% 1,000 ML IV STA (22:04)
[2019-10-07] MEDS: DEXTROSE 5% 1,000 ML IV SCH (22:04)
[2019-10-07 22:08] LABS: HYPOCHROMASIA MODERATE; LYMPHOCYTES % (MANUAL) 13 % (19-48); MONOCYTES % (MANUAL) 5 % (3.4-9.0); NEUTROPHILS % (MANUAL) 81 % (40-74); PLATELET ESTIMATE ADEQUATE; PLATELET MORPHOLOGY COMMENT NORMAL; RBC MORPHOLOGY COMMENT NORMAL
--- NOTE | 2019-10-07 22:44 | Emergency Department Note ---
History of Present Illnes History of Present Illness Chief Complaint: General Medicine Complaints History of Present Illness This is a 89 year old female sent to the ED for low blood pressure and bradycardia, patient unable to provide history . Historian: [facility] Heels/EMS Arrival Mode: [place] History limited by: condition of the patient Severity: unable to specify Onset quality: unable to specify Progression: unable to specify Past Medical/Family History Physician Review I have reviewed the patient's past medical and family history. Any updates have been documented here. Past Medical History Recent Fever: No Clinical Suspicion of Infectio: Yes New/Unexplained Change in Ment: No Past Medical History: Hypertension, CVA, A-Fib, Hypothyroidism, UTI's, ESRD, Depression Other Medical History: unable to obtain since pt confused Other Surgery: unable to obtain since pt confused Social History Smoking Cessation: Unknown if ever smoked Review of Systems ROS Narrative Unable to obtain ROS: Unable to obtain due to, altered mental status Physical Exam Related Data Allergies: Coded Allergies: Penicillins (Verified Allergy, Severe, 07/01/19) azithromycin (Verified Allergy, Intermediate, 10/08/19) Triage Vital Signs Vital Signs Date Time Temp Pulse Resp B/P (MAP) Pulse Ox O2 Delivery O2 Flow Rate FiO2 10/07/19 21:06 96.7 51 20 104/58 100 Room Air 3.0 Vital signs reviewed: Yes Physical Exam CONSTITUTIONAL Constitutional: Present cachectic, Present ill appearing HENT HENT: Present normocephalic, Present atraumatic, Present oropharynx clear/moist, Present nose normal HENT L/R: Present left ext ear normal, Present right ext ear normal EYES Eyes: Reports PERRL, Reports conjunctivae normal NECK Neck: Present ROM normal PULMONARY Pulmonary: Present effort normal, Present breath sounds normal CARDIOVASCULAR Cardiovascular: Present regular rhythm, Present heart sounds normal GASTROINTESTINAL Abdominal: Present soft, Present nontender GENITOURINARY SKIN MUSCULOSKELETAL Musculoskeletal: Present other (contracted lower extremities) NEUROLOGICAL Neurological: Present alert PSYCHOLOGICAL Results Laboratory Result Diagram: 10/07/19203410/07/192034 Laboratory Laboratory Tests Test 10/07/19 20:35 White Blood Count 12.37 x10e3/uL (4.8-10.8) Red Blood Count 2.37 x10e6/uL (3.6-5.1) Hemoglobin 7.2 g/dL (12.0-16.0) Hematocrit 27.2 % (34.2-44.1) Mean Corpuscular Volume 114.8 fL (81-99) Mean Corpuscular Hemoglobin 30.4 pg (28-32) Mean Corpuscular Hemoglobin Concent 26.5 g/dL (31-35) Red Cell Distribution Width 23.0 % (11.7-14.4) Platelet Count 222 x10e3/uL (140-360) Neutrophils (%) (Auto) 81.0 % (38.7-80.0) Lymphocytes (%) (Auto) 9.3 % (18.0-39.1) Monocytes (%) (Auto) 6.2 % (4.4-11.3) Eosinophils (%) (Auto) 2.5 % (0.0-6.0) Basophils (%) (Auto) 0.4 % (0.0-1.0) Neutrophils # (Auto) 10.0 (2.1-6.9) Lymphocytes # (Auto) 1.2 (1.0-3.2) Monocytes # (Auto) 0.8 (0.2-0.8) Eosinophils # (Auto) 0.3 (0.0-0.4) Basophils # (Auto) 0.1 (0.0-0.1) Absolute Immature Granulocyte (auto 0.08 x10e3/uL (0-0.1) Differential Total Cells Counted 100 Neutrophils % (Manual) 81 % (40-74) Lymphocytes % (Manual) 13 % (19-48) Monocytes % (Manual) 5 % (3.4-9.0) Reactive Lymphocytes 1 Platelet Estimate Adequate Platelet Morphology Comment Normal Hypochromasia Moderate Red Cell Morphology Comment Normal Sodium Level 178 mmol/L (136-145) Potassium Level 4.2 mmol/L (3.5-5.1) Chloride Level 146 mmol/L (98-107) Carbon Dioxide Level 18 mmol/L (22-29) Anion Gap 18.2 mmol/L (8-16) Blood Urea Nitrogen 94 mg/dL (7-26) Creatinine 6.32 mg/dL (0.57-1.11) Estimat Glomerular Filtration Rate 6 ML/MIN (60-) BUN/Creatinine Ratio 15 (6-25) Glucose Level 94 mg/dL (74-118) Calcium Level 8.6 mg/dL (8.4-10.2) Total Bilirubin 0.3 mg/dL (0.2-1.2) Aspartate Amino Transf (AST/SGOT) 55 IU/L (5-34) Alanine Aminotransferase (ALT/SGPT) 15 IU/L (0-55) Alkaline Phosphatase 80 IU/L (40-150) Creatine Kinase 1948 IU/L (29-168) Creatine Kinase MB 93.40 ng/mL (0-5.0) Troponin I 0.376 ng/mL (0-0.300) Total Protein 7.2 g/dL (6.5-8.1) Albumin 1.5 g/dL (3.5-5.0) Globulin 5.7 g/dL (2.3-3.5) Albumin/Globulin Ratio 0.3 (0.8-2.0) Lab results reviewed: Yes Imaging Imaging results reviewed: Yes Critical Care Time Total Critical Care Time (min): 65 Critical care time exclusive o: separately billable procedures Critcal care necessary due to: metabolic failure Assessment & Plan Medical Decision Making MDM 89-year-old nonverbal female arrived to the ED after being hypotensive at the senior care. Concerns of possible impending severe sepsis were noted at 2300 (TIME ZERO) - patient with chronic indwelling Ashraf, sediments were noted and this may be a possible source of infection Lactic acid and blood cultures ordered Broad-spectrum coverage with Zosyn given Patient is a DNR possible hospice evaluation per family Assessment & Plan Final Impression: (1) Severe sepsis (2) Rhabdomyolysis (3) Hypernatremia Depart Disposition: ADMITTED Last Vital Signs Date Time Temp Pulse Resp B/P (MAP) Pulse Ox O2 Delivery O2 Flow Rate FiO2 10/07/19 21:06 96.7 51 20 104/58 100 Room Air 3.0 Home Meds Reported Medications Sertraline Hcl (SERTRALINE HCL) 50 Mg Tablet, 50 MG PO DAILY, #30 TAB 07/01/19 Prednisone (PREDNISONE) 5 Mg Tablet, 5 MG PO DAILY 07/01/19 Potassium Chloride (Potassium Chloride) 20 Meq Tablet.er, 20 MEQ PO DAILY 07/01/19 Mirtazapine (MIRTAZAPINE) 15 Mg Tab, 15 MG PO HS, TAB 07/01/19 Levothyroxine Sodium (SYNTHROID) 100 Mcg Tab, 200 MCG PO 0600, #30 TAB 07/01/19 Gabapentin (GABAPENTIN) 300 Mg Capsule, 300 MG PO HS, #60 CAP 07/01/19 Clopidogrel Bisulfate* (PLAVIX) 75 Mg Tablet, 75 MG PO DAILY, #30 TAB 07/01/19 Carvedilol (CARVEDILOL) 12.5 Mg Tablet, 12.5 MG PO BID, #60 TAB hold for sbp less than 110 or pulse below 55 07/01/19 Aspirin (ASPIRIN CHEW) 81 Mg Chew, 81 MG PO DAILY, #30 TAB 07/01/19 Apixaban (Eliquis) 5 Mg Tablet, 5 MG PO BID 07/01/19 Amlodipine Besylate (AMLODIPINE BESYLATE) 10 Mg Tablet, 10 MG PO DAILY, #30 TAB 07/01/19 Amiodarone Hcl (AMIODARONE HCL) 200 Mg Tablet, 200 MG PO BID 07/01/19 Allopurinol (ALLOPURINOL) 100 Mg Tablet, 100 MG PO DAILY, #30 TAB 07/01/19 Medications in the ED Sodium Chloride 1,000 ml @ STK-MED ONCE .ROUTE ; Start 10/07/19 at 21:07; Stop 10/07/19 at 21:02; Status DC Dextrose 1,000 ml @ 0 mls/hr Q0M STAT IV Last administered on 10/07/19at 22:04; Admin Dose 125 MLS/HR; Start 10/07/19 at 21:29; Stop 10/07/19 at 21:31; Status DC SHAKA DAVILA, Oct 07, 2019 22:44
[2019-10-07] MEDS ORDERED: PIPER-TAZ 3.375 GM 50 ML IV ONE (22:45)
[2019-10-07] MEDS ORDERED: MEROPENEM 1GM 100 ML IV ONE (23:21)
--- NOTE | 2019-10-07 23:28 | Diagnostic Imaging Report ---
EXAMINATION: CHEST SINGLE (PORTABLE) INDICATION: Shortness of breath. Kidney failure ^Y ^hypotension ^[id number] ^[id number] COMPARISON: 07/01/19. FINDINGS: TUBES and LINES: None. LUNGS: Diffuse coarsening of the pulmonary interstitium. Calcified granulomata in the right lower lobe, unchanged. Multifocal, multilobar patchy densities, may reflect asymmetric pulmonary edema and/or atypical/viral infection in the proper clinical setting. PLEURA: No pleural effusion or pneumothorax. HEART AND MEDIASTINUM: Tortuous thoracic aorta with calcifications of the arch.. The cardiac silhouette is moderately enlarged. BONES AND SOFT TISSUES: There are degenerative changes in the thoracic spine. UPPER ABDOMEN: No free air under the diaphragm. IMPRESSION: 1. Multifocal patchy density represent asymmetric pulmonary edema however, infectious etiology could have this appearance in the proper clinical setting. 2. Moderate cardiomegaly. Signed by: Dr. Vick Sweet M.D. on 10/07/2019 11:25 PM
[2019-10-08] MEDS: DEXTROSE 5% 1,000 ML IV STA (00:35)
[2019-10-08 02:30] VITALS: BP_SYST 96; BP_SYST 98; BP_DIAS 24; BP_DIAS 48
--- NOTE | 2019-10-08 05:36 | NUR ---
spoke to Dara French MEDICAL CODING MANAGER regarding patient temp reading 94.5 axillary and 94.8 rectally, pt already covered with 6 warm blankets. New order received to apply jb hugger and to consult case management for hospice eval.
[2019-10-08] MEDS ORDERED: MEROPENEM 1GM 100 ML IV SCH (06:00)
--- NOTE | 2019-10-08 06:26 | NUR ---
temperature now reading 97.4 axillary
[2019-10-08] MEDS: DEXTROSE 5% 1,000 ML IV SCH (06:33)
--- NOTE | 2019-10-08 06:50 | NUR ---
Patient lying in bed with eyes closed. Respiration even and unlabored without SOB. Patient is currently DNR. Patient does not open her eyes with Verbal command. Call light in reach.
[2019-10-08 07:19] LABS: BASOPHILS % 0.4 % (0.0-1.0); EOSINOPHILS # (AUTO) 0.3 (0.0-0.4); EOSINOPHILS % 2.7 % (0.0-6.0); LYMPHOCYTES # (AUTO) 0.8 (1.0-3.2); LYMPHOCYTES % 7.4 % (18.0-39.1); MEAN CORPUSCULAR HEMOGLOBIN 30.8 pg (28-32); MEAN CORPUSCULAR HGB CONC 26.3 g/dL (31-35); MEAN CORPUSCULAR VOLUME 117.2 fL (81-99); MONOCYTES # (AUTO) 0.4 (0.2-0.8); MONOCYTES % 3.9 % (4.4-11.3); NEUTROPHILS # (AUTO) 9.3 (2.1-6.9); PLATELET COUNT 181 x10e3/uL (140-360); RED BLOOD COUNT 1.98 x10e6/uL (3.6-5.1); RED CELL DISTRIBUTION WIDTH 23.2 % (11.7-14.4)
[2019-10-08 07:25] LABS: HEMATOCRIT 23.2 % (34.2-44.1); HEMOGLOBIN 6.1 g/dL (12.0-16.0)
[2019-10-08 07:34] LABS: ANION GAP 16.6 mmol/L (8-16); CALCIUM 7.7 mg/dL (8.4-10.2); CREATININE, SERUM 6.3 mg/dL (0.57-1.11); POTASSIUM 3.6 mmol/L (3.5-5.1)
--- NOTE | 2019-10-08 08:00 | NUR ---
Lying in bed with eyes closed. Patient's BP is 83/33, HR 62, TEMPERATURE 98.4 jb hugger on.
[2019-10-08 08:46] VITALS: BP 83/33
[2019-10-08 09:07] LABS: ANISOCYTOSIS MODERATE; EOSINOPHILS % (MANUAL) 1 % (0-7); LYMPHOCYTES % (MANUAL) 10 % (19-48); MONOCYTES % (MANUAL) 5 % (3.4-9.0); NEUTROPHILS % (MANUAL) 84 % (40-74); PLATELET ESTIMATE ADEQUATE; PLATELET MORPHOLOGY COMMENT NORMAL; RBC MORPHOLOGY COMMENT ABNORMAL
--- NOTE | 2019-10-08 09:28 | NUR ---
SW CALLED PT'S DAUGHTER Jarad TO DISCUSS HOSPICE REFERRAL. DTR SAID NOBODY TOLD HER ANYTHING ABOUT HOSPICE, SHE JUST KNEW THAT PT WAS BROUGHT TO THE HOSPITAL. CAMILA WILL ASK MD TO CALL DTR TO DISCUSS HOSPICE AND WILL FOLLOW UP WITH ARRANGING HOSPICE AFTER.
[2019-10-08 09:32] VITALS: BP 83/33
--- NOTE | 2019-10-08 10:00 | NUR ---
Lying in bed with eyes closed. Respiration even and unlabored. Call light in reach.
--- NOTE | 2019-10-08 10:55 | NUR ---
Lying in bed and patient is Asystole at this time. Unable to palpate pulse, pupils dilated. No heart beat noted per auscultation. Notified vat house supervisor.
--- NOTE | 2019-10-08 11:20 | NUR ---
Spoke with the patient's family member and notified patient . Family members gave the home number.
--- NOTE | 2019-10-08 12:45 | NUR ---
Spoke with the patient's daughter Opal De La Rosa and asked if they want to do autopsy, she stated that she doesn't think her mother would want it. Verbalized no to autopsy.
--- NOTE | 2019-10-08 18:55 | NUR ---
Wind Technician picked up the remains of Ash Cassie at this time.
--- OUTSIDE RECORDS SUMMARY | 2019-10-14 17:58 | XMS REPORT | Summary of Care ---
Author Organization Unknown Address Unknown Phone Unavailable Encounter JUSTIN Valero(ZULEYKA) [id number] Date(s): 01/09/14 - 01/09/14 [facility] [address] [place], [place] [id number] [place] [address] Discharge Diagnosis: Fall Discharge Diagnosis: Foot pain Discharge Diagnosis: Rib pain Discharge Disposition: Home Physician Attending: Kunal Templeton MD Reason for Visit FALL Vital Signs Most recent to 1 oldest [Reference Range]: Height 165.1 cm (01/09/14 11:47 AM) Temperature Oral 97.4 DegF [96.4-99.1 DegF] (01/09/14 11:47 AM) Systolic Blood 150 mmHg Pressure [90-140 *HI* mmHg] (01/09/14 11:47 AM) Diastolic Blood 85 mmHg Pressure [60-90 (01/09/14 11:47 AM) mmHg] Respiratory Rate 20 BRMIN [14-20 BRMIN] (01/09/14 11:47 AM) Peripheral Pulse 79 bpm Rate [60-100 bpm] (01/09/14 11:47 AM) Weight 87.273 kg (01/09/14 11:47 AM) Body Mass Index 32.02 m2 (01/09/14 11:47 AM) Problem List Condition Effective Dates Status Health Status Informan t Arthritis(Confirmed) Resolved High blood Resolved pressure(Confirmed) Hypothyroidism(Confi Resolved rmed) Stroke(Confirmed) Resolved Allergies, Adverse Reactions, Alerts Substance Reaction Severity Status erythromycin Active penicillins Active Medications ibuprofen 400 mg oral tablet 400 mg, 1 tab, Route: PO, Drug form: TAB, ONCE, Dosing Weight 87.273, kg, Priori ty: STAT, Start date: 01/09/14 15:19:00, Stop date: 01/09/14 15:19:00 Notes: (Same as: Motrin)"Do Not Crush" Give with food. Start Date: 01/09/14 Stop Date: 01/09/14 Status: Completed Results ELECTROLYTES Most recent to 1 oldest [Reference Range]: Sodium Lvl [135-145 141 mEq/L mEq/L] (01/09/14 2:11 PM) Potassium Lvl 4.2 mEq/L [3.5-5.1 mEq/L] (01/09/14 2:11 PM) Chloride Lvl [95-109 108 mEq/L mEq/L] (01/09/14 2:11 PM) CO2 [24-32 mEq/L] 21 mEq/L *LOW* (01/09/14 2:11 PM) AGAP [10.0-20.0 16.2 mEq/L mEq/L] (01/09/14 2:11 PM) CHEM PANEL Most recent to 1 oldest [Reference Range]: Creatinine Lvl 1.3 mg/dL [0.5-1.4 mg/dL] (01/09/14 2:11 PM) eGFR 38 mL/min/1.73m2 1 *NA* (01/09/14 2:11 PM) BUN [7-22 mg/dL] 36 mg/dL *HI* (01/09/14 2:11 PM) Glucose Lvl [70-99 110 mg/dL 2 mg/dL] *HI* (01/09/14 2:11 PM) Calcium Lvl 9.0 mg/dL [8.5-10.5 mg/dL] (01/09/14 2:11 PM) 1Result Comment: The eGFR is calculated using the CKD-EPI formula. In most young, healthy individuals the eGFR will be >90 mL/min/1.73m2. The eGFR declines with age. An eGFR of 60-89 may be normal in some populations, particularly the elderly, for whom the CKD-EPI formula has not been extensively validated. Use of the eGFR is not recommended in the following populations: Individuals with unstable creatinine concentrations, including patients and those with serious co-morbid conditions. Patients with extremes in muscle mass or diet. The data above are obtained from the National Kidney Disease Education Program ( NKDEP) which additionally recommends that when the eGFR is used in patients with extremes of body mass index for purposes of drug dosing, the eGFR should be mul tiplied by the estimated BMI. 2Interpretive Data: Adult reference range values reflect the clinical guidelines of the [employer]. Medications Administered During Your Visit No data available for this section Immunizations No data available for this section Social History Social History Type Response
--- OUTSIDE RECORDS SUMMARY | 2019-10-14 17:58 | XMS REPORT | Summary of Care ---
Author Author [facility] Organization [facility] Address Unknown Phone Unavailable Encounter HQ Roser_radha(FIN) [id number] Date(s): 01/02/15 - 01/02/15 [facility] [place] [facility] [address] [place] [address]- [phone] Discharge Disposition: Home Attending Physician: Rola Giordano MD Referring Physician: Rola Giordano MD Vital Signs No data available for this section Problem List Condition Effective Dates Status Health Status Informan t Arthritis(Confirmed) Resolved High blood Resolved pressure(Confirmed) Hypothyroidism(Confi Resolved rmed) Stroke(Confirmed) Resolved Allergies, Adverse Reactions, Alerts Substance Reaction Severity Status erythromycin Active penicillins Active Medications No data available for this section Results No data available for this section Immunizations No data available for this section Procedures No data available for this section Social History Social History Type Response Alcohol Never Smoking Status Never smoker; Exposure to T obacco Smoke None; Cigarette Smoking Last 365 Days No; Reg Smoking Cessation Counseli ng No Assessment and Plan No data available for this section
--- OUTSIDE RECORDS SUMMARY | 2019-10-14 17:58 | XMS REPORT | Summary of Care ---
Author Author [facility] Organization [facility] Address Unknown Phone Unavailable Encounter JUSTIN Valero(ZULEYKA) [id number] Date(s): 12/02/16 - 12/03/16 [facility] [address] [place] [address]- Discharge Disposition: Home or Self Care Attending Physician: Gonzalez King MD Admitting Physician: Gonzalez King MD Vital Signs 1 2 3 Most recent to oldest [Reference Range]: 162.56 cm (12/02/16 3:35 PM) 162.56 cm (12/02/16 11:17 AM) Height 97.6 DegF (12/03/16 6:33 AM) 97.5 DegF (12/03/16 3:55 AM) 97.8 DegF (12/02/16 11:09 PM) Temperature Oral [96.4-99.1 DegF] 158/84 mmHg *HI* (12/03/16 6:33 AM) 149/78 mmHg *HI* (12/03/16 3:55 AM) 173/75 mmHg *HI* (12/02/16 11:09 PM) Blood Pressure [90-140/60-90 mmHg] 18 BRMIN (12/03/16 6:33 AM) 18 BRMIN (12/03/16 3:55 AM) 18 BRMIN (12/02/16 11:09 PM) Respiratory Rate [14-20 BRMIN] 61 bpm (12/03/16 6:33 AM) 51 bpm *LOW* (12/03/16 3:55 AM) 67 bpm (12/02/16 11:09 PM) Peripheral Pulse Rate [60-100 bpm] 83.182 kg (12/02/16 3:35 PM) 83.182 kg (12/02/16 11:17 AM) Weight 31.48 m2 (12/02/16 3:35 PM) 31.48 m2 (12/02/16 11:17 AM) Body Mass Index Problem List Condition Effective Dates Status Health Status Informan t CVA (cerebral Resolved vascular accident)(Confirmed) Gout(Confirmed) Resolved HTN Resolved (hypertension)(Confi rmed) Hypothyroidism(Confi Resolved rmed) Lumbago(Confirmed) Active Lumbar Active spondylosis(Confirme d) Obesity(Confirmed) Active Rheumatoid Resolved arthritis(Confirmed) Allergies, Adverse Reactions, Alerts Substance Reaction Severity Status erythromycin Active penicillins Active Medications aliskiren-amlodipine 150 mg-10 mg oral tablet 1 tab, Route: PO, Dosing Weight 83.182, kg, Daily, Start date: 12/03/16 9:00:00 CDT, Duration: 30 day, Stop date: 01/01/17 9:00:00 CDT Start Date: 12/03/16 Stop Date: 12/02/16 Status: Deleted allopurinol 100 mg, 1 tab, Route: PO, Drug form: TAB, BID, Dosing Weight 83.182, kg, Start d ate: 12/02/16 17:00:00 CDT, Duration: 30 day, Stop date: 01/01/17 9:00:00 CDT Notes: (Same as: Zyloprim) Start Date: 12/02/16 Stop Date: 12/03/16 Status: Discontinued amLODIPine 10 mg, 2 tab, Route: PO, Drug form: TAB, Daily, Start date: 12/03/16 9:00:00 CDT , Duration: 30 day, Stop date: 01/01/17 9:00:00 CDT Notes: (Same as: Norvasc) Start Date: 12/03/16 Stop Date: 12/03/16 Status: Discontinued aspirin 81 mg tablet, enteric coated 81 mg, 1 tab, Route: PO, Drug form: ECTAB, Daily, Dosing Weight 83.182, kg, Star t date: 12/02/16 17:00:00 CDT, Duration: 30 day, Stop date: 01/01/17 9:00:00 CDT Notes: Do not crush or chew.(Same As: Ecotrin) Start Date: 12/02/16 Stop Date: 12/03/16 Status: Discontinued Lasix 40 mg, Route: IVP, Drug form: INJ, ONCE, Dosing Weight 83.182, kg, Priority: STA T, Start date: 12/02/16 13:48:00 CDT, Stop date: 12/02/16 13:48:00 CDT Start Date: 12/02/16 Stop Date: 12/02/16 Status: Completed Lasix 40 mg, 4 mL, Route: IVP, Drug form: INJ, Daily, Dosing Weight 83.182, kg, Start date: 12/03/16 9:00:00 CDT, Duration: 30 day, Stop date: 01/01/17 9:00:00 CDT Notes: (Same as: Lasix) MEDICATION WASTE Product Size: 40 mgProduct Was inga: ___ mg Start Date: 12/03/16 Stop Date: 12/03/16 Status: Discontinued nitroglycerin 0.4 mg sublingual tablet 0.4 mg, 1 tab, Route: SL, Drug form: TAB, Q5Min, Dosing Weight 83.182, kg, PRN C hest Pain, Start date: 12/02/16 14:43:00 CDT, Duration: 30 day, Stop date: 01/01 14:42:00 CDT Notes: (Same as:Nitroquick, Nitrostat)"Do Not Crush" Sublingual tablet Start Date: 12/02/16 Stop Date: 12/03/16 Status: Discontinued Plavix 75 mg, 1 tab, Route: PO, Drug form: TAB, Daily, Dosing Weight 83.182, kg, Start date: 12/03/16 9:00:00 CDT, Duration: 30 day, Stop date: 01/01/17 9:00:00 CDT Notes: (Same As: Plavix) Start Date: 12/03/16 Stop Date: 12/03/16 Status: Discontinued pravastatin 20 mg, 1 tab, Route: PO, Drug form: TAB, Bedtime, Dosing Weight 83.182, kg, Star t date: 12/02/16 21:00:00 CDT, Duration: 30 day, Stop date: 12/31/16 21:00:00 CD T Notes: (Same as: Pravachol) Start Date: 12/02/16 Stop Date: 12/03/16 Status: Discontinued predniSONE 10 mg, 1 tab, Route: PO, Drug form: TAB, Daily, Dosing Weight 83.182, kg, Start date: 12/03/16 9:00:00 CDT, Duration: 30 day, Stop date: 01/01/17 9:00:00 CDT Notes: (Same as: PredniSONE) Take with food. Start Date: 12/03/16 Stop Date: 12/03/16 Status: Discontinued Saline Flush 0.9% 10 mL, Route: IVP, Drug Form: INJ, Dosing Weight 83.182, kg, PRN, PRN Line Flush , Start date: 12/02/16 11:27:00 CDT, Duration: 30 day, Stop date: 01/01/17 11:26 :00 CDT Notes: (Same as: BD Posiflush) Start Date: 12/02/16 Stop Date: 12/02/16 Status: Discontinued Synthroid 200 microgram, 1 tab, Route: PO, Drug form: TAB, Q630AM, Dosing Weight 83.182, k g, Start date: 12/03/16 6:30:00 CDT, Duration: 30 day, Stop date: 01/01/17 6:30: 00 CDT Notes: Take 1 hour before or 2 hours after meal; Enteral feeds may interefere wi th the absorption of this medication. (Same as: Levothroid) Start Date: 12/03/16 Stop Date: 12/03/16 Status: Discontinued Tekturna 150 mg, 1 tab, Route: PO, Drug form: TAB, Daily, Start date: 12/03/16 9:00:00 CD T, Duration: 30 day, Stop date: 01/01/17 9:00:00 CDT Notes: Same as Tekturna Start Date: 12/03/16 Stop Date: 12/03/16 Status: Discontinued ubiquinone 100 mg, Route: PO, Drug form: CAP, Daily, Dosing Weight 83.182, kg, Start date: 12/03/16 9:00:00 CDT, Duration: 30 day, Stop date: 01/01/17 9:00:00 CDT Start Date: 12/03/16 Stop Date: 12/03/16 Status: Discontinued Results ELECTROLYTES Most recent to 1 oldest [Reference Range]: Sodium Lvl [135-145 141 mEq/L mEq/L] (12/02/16 11:49 AM) Potassium Lvl 3.8 mEq/L [3.5-5.1 mEq/L] (12/02/16 11:49 AM) Chloride Lvl [95-109 108 mEq/L mEq/L] (12/02/16 11:49 AM) CO2 [24-32 mEq/L] 26 mEq/L (12/02/16 11:49 AM) AGAP [10.0-20.0 10.8 mEq/L mEq/L] (12/02/16 11:49 AM) CHEM PANEL Most recent to 1 oldest [Reference Range]: Creatinine Lvl 1.40 mg/dL [0.50-1.40 mg/dL] (12/02/16 11:49 AM) eGFR 34 mL/min/1.73m2 1 *NA* (12/02/16 11:49 AM) BUN [7-22 mg/dL] 31 mg/dL *HI* (12/02/16 11:49 AM) B/C Ratio [6-25] 22 (12/02/16 11:49 AM) Glucose Lvl [70-99 96 mg/dL mg/dL] (12/02/16 11:49 AM) Total Protein 7.8 g/dL [6.4-8.4 g/dL] (12/02/16 11:49 AM) Albumin Lvl [3.5-5.0 3.2 g/dL g/dL] *LOW* (12/02/16 11:49 AM) Globulin [2.7-4.2 4.6 g/dL g/dL] *HI* (12/02/16 11:49 AM) A/G Ratio [0.7-1.6] 0.7 (12/02/16 11:49 AM) Calcium Lvl 8.2 mg/dL [8.5-10.5 mg/dL] *LOW* (12/02/16 11:49 AM) ALT [0-65 unit/L] 12 unit/L (12/02/16 11:49 AM) AST [0-37 unit/L] 15 unit/L (12/02/16 11:49 AM) Alk Phos [39-136 61 unit/L unit/L] (12/02/16 11:49 AM) Bili Total [0.2-1.3 0.8 mg/dL mg/dL] (12/02/16 11:49 AM) 1Result Comment: The eGFR is calculated using [...] be mul tiplied by the estimated BMI. CARDIAC ENZYMES Most recent to 1 oldest [Reference Range]: Total CK [12-191 58 unit/L unit/L] (12/02/16 11:49 AM) CK MB [0.5-3.6 1.5 ng/mL ng/mL] (12/02/16 11:49 AM) CK MB Index 2.6 [0.0-2.5] *HI* (12/02/16 11:49 AM) Troponin-I <0.02 ng/mL [0.00-0.40 ng/mL] (12/02/16 11:49 AM) BNP [<=100 pg/mL] 243 pg/mL *HI* (12/02/16 11:49 AM) URINE AND STOOL Most recent to 1 oldest [Reference Range]: UA Turbidity [Clear] Clear (12/02/16 3:29 PM) UA Color Ltyellow *NA* (12/02/16 3:29 PM) UA pH [5.0-8.0] 5.0 (12/02/16 3:29 PM) UA Spec Grav 1.011 [<=1.030] (12/02/16 3:29 PM) UA Glucose [Negative Negative mg/dL mg/dL] *NA* (12/02/16 3:29 PM) UA Blood [Negative] Negative (12/02/16 3:29 PM) UA Ketones [Negative Negative mg/dL mg/dL] *NA* (12/02/16 3:29 PM) UA Protein [Negative Negative mg/dL mg/dL] (12/02/16 3:29 PM) UA Urobilinogen <=1.0 mg/dL [0.1-1.0 mg/dL] *NA* (12/02/16 3:29 PM) UA Bili [Negative] Negative *NA* (12/02/16 3:29 PM) UA Leuk Est Negative [Negative] (12/02/16 3:29 PM) UA Nitrite Negative [Negative] (12/02/16 3:29 PM) UA WBC [0-5 /HPF] 1 /HPF (12/02/16 3:29 PM) UA RBC [0-2 /HPF] 1 /HPF (12/02/16 3:29 PM) UA Sq Epi [Few /LPF] Occasional /LPF *NA* (12/02/16 3:29 PM) UA Hyal Cast [0-2 1 /LPF /LPF] (12/02/16 3:29 PM) HEMATOLOGY Most recent to 1 oldest [Reference Range]: WBC [3.7-10.4 K/CMM] 7.8 K/CMM (12/02/16 11:49 AM) RBC [4.20-5.40 3.10 M/CMM M/CMM] *LOW* (12/02/16 11:49 AM) Hgb [12.0-16.0 g/dL] 10.6 g/dL *LOW* (12/02/16 11:49 AM) Hct [36.0-48.0 %] 31.7 % *LOW* (12/02/16 11:49 AM) MCV [80.0-98.0 fL] 102.1 fL *HI* (12/02/16 11:49 AM) MCH [27.0-31.0 pg] 34.1 pg *HI* (12/02/16 11:49 AM) MCHC [32.0-36.0 33.4 g/dL g/dL] (12/02/16 11:49 AM) RDW [11.5-14.5 %] 13.9 % (12/02/16 11:49 AM) Platelet [133-450 234 K/CMM K/CMM] (12/02/16 11:49 AM) MPV [7.4-10.4 fL] 8.4 fL (12/02/16 11:49 AM) Segs [45.0-75.0 %] 72.4 % (12/02/16 11:49 AM) Lymphocytes 19.2 % [20.0-40.0 %] *LOW* (12/02/16 11:49 AM) Monocytes [2.0-12.0 5.5 % %] (12/02/16 11:49 AM) Eosinophils [0.0-4.0 1.7 % %] (12/02/16 11:49 AM) Basophils [0.0-1.0 1.2 % %] *HI* (12/02/16 11:49 AM) Segs-Bands # 5.6 K/CMM [1.5-8.1 K/CMM] (12/02/16 11:49 AM) Lymphocytes # 1.5 K/CMM [1.0-5.5 K/CMM] (12/02/16 11:49 AM) Monocytes # [0.0-0.8 0.4 K/CMM K/CMM] (12/02/16 11:49 AM) Eosinophils # 0.1 K/CMM [0.0-0.5 K/CMM] (12/02/16 11:49 AM) Basophils # [0.0-0.2 0.1 K/CMM K/CMM] (12/02/16 11:49 AM) Macrocyte [None 1+ Seen] *ABN* (12/02/16 11:49 AM) Immunizations No data available for this section Procedures Procedure Date Related Diagnosis Body Site Cholecystectomy Social History Social History Type Response Alcohol Never Smoking Status Never smoker; Exposure to T obacco Smoke None; Cigarette Smoking Last 365 Days No; Reg Smoking Cessation Counseli ng No Assessment and Plan Extracted from: Title: Clinical Document Author: Buddy Ruiz MD te: 12/03/16 Progress Note -[place] [facility]- [facility] (Office) [address] [address] [facility], [address] (Ph) [phone] Attending: Gonzalez King MDPhone: Service: Internal Medicine Code status: None Specified=FULL CODE Reason for Admission: VOLUME OVERLOAD Working DRG: None Documented Isolation: None Documented Consulting Physicians: Buddy Ruiz MDOffice: Service: Cardiology Gonzalez King MDOffice: Service: Medicine Subjective No acute overnight Allergies: erythromycin, penicillins Medications (12) Active Scheduled Meds (10): 12/03/16 aliskiren (Tekturna) 150 mg PO Daily 12/02/16 allopurinol 100 mg PO BID 12/03/16 amLODIPine 10 mg PO Daily 12/02/16 aspirin (aspirin 81 mg tablet, enteric coated) 81 mg PO Daily 12/03/16 clopidogrel (Plavix) 75 mg PO D aily 12/03/16 furosemide (Lasix) 40 mg IVP Da haile 12/03/16 levothyroxine (Synthroid) 200 m icrogram PO Q630AM 12/02/16 pravastatin 20 mg PO Bedtime 12/03/16 predniSONE 10 mg PO Daily 12/03/16 ubiquinone 100 mg PO Daily Unscheduled Meds: None PRN Meds (1): 12/02/16 nitroglycerin (nitroglycerin 0. 4 mg sublingual tablet) 0.4 mg SL Q5Min One Time Meds (1): 12/02/16 (Completed) furosemide (Lasix) 40 mg IVP ONCE Continuous Infusions: None Objective Review of Systems HEENT: no diplopia Respiratory: no cough Cardiovascular: no chest pain Gastrointestinal: no diarrhea Genitourinary: no dysuria Integumentary: no skin lesions Extremities: no edema Neurologic: no hx of CVA/TIA Willis/Lymph: no LAD Endocrine: no polyuria nor polydipsia Psychiatric: at baseline VitalsTmp(F)Tmp(C)[id number] 12/03 06:3397.636.46asfb336/84---[id number]- ----- 12/03 03:5597.536.82sinp565/78---[id number]- ----- 12/02 23:0997.836.85sbsa311/75---[id number]- ----- 12/02 19:2897.536.99luzp887/80---273753- ----- 12/02 16:0197.736.93uvby730/81---964892- ----- 24 Hr Tmax: 98.2F (36.78c) at 12/02 11:1 7Vital Signs are the last 5 in the past 48 hours. 24 Hr Tmin: 97.5F (36.39c) at 12/03 03: 55Weights are the last 5 in 60 days, plus initial. DateWt(kg)Wt(lb)Ht(cm)Ht(in)MethodBMIBSA 12/02 (initial) 83.18 183.00Estimated 31 .51.94 62.56 64.00Stated (no point of care glucose results charte d in last 24 hours) Most Recent Scores: 12/03/16Johns Paige Fall Score9 12/02/16Glasgow Coma Score15 12/02/16Braden Score19 12/02/16Pain Intensity NRS (0-10)0 Lines, Tubes, and Drains: 12/02/2016 11:49 Peripheral Lines: Hand Right 20 gauge Over the needle catheter (no surgical procedures documented) 24hr Labs 12/02 1529 UA ColorLtyellow UA TurbidityClear UA Spec Grav1.011 UA pH5.0 UA ProteinNegative UA GlucoseNegative UA KetonesNegative UA BiliNegative UA BloodNegative UA Urobilinogen<=1.0 UA NitriteNegative UA Leuk EstNegative UA RBC1 UA WBC1 UA Sq EpiOccasional UA Hyal Cast1 12/02 1149 Sodium Hgg935 Potassium Lvl3.8 Chloride Pta225 CO226 AGAP10.8 Glucose Lvl96 Creatinine Lvl1.40 BUN31 H B/C Ratio22 Total Protein7.8 Albumin Lvl3.2 L Globulin4.6 H A/G Ratio0.7 Calcium Lvl8.2 L ALT12 AST15 Alk Phos61 Bili Total0.8 eGFR34 Total CK58 Troponin-I<0.02 CK MB1.5 CK MB Index2.6 H IFU117 H WBC7.8 RBC3.10 L Hgb10.6 L Hct31.7 L AES368.1 H MCH34.1 H MCHC33.4 RDW13.9 Rpcozxwa242 MPV8.4 Segs72.4 Monocytes5.5 Lrpdabraujn17.2 L Eosinophils1.7 Basophils1.2 H Segs-Bands #5.6 Lymphocytes #1.5 Monocytes #0.4 Eosinophils #0.1 Basophils #0.1 Macrocyte1+ Physical Exam: HEENT: PERRLA Neurological: A&O x 3, no confusion Cardiac: S1 & S2, no murmurs, denies chest pain, sinus rhythm Respiratory: Lungs clear, no wheezing, denies cough Gastrointestinal: Positive bowel sounds, denies constipation, denies abdominal pain Genitourinary: Voiding without difficulties Extremeties: No edema Skin: Intact Assesment and Plan 88-year-old white female who was discour aged uncooperative edema. History of chronic kidney disease, critical disease, PAD, carotid artery stenosis (non obstructive by angio) Hypertension. 1. Peripheral edema: no evidence of DVT , Preserved EF on Echo. Keep po diuretic 2. DISPOSITION: We will follow as O/p
--- OUTSIDE RECORDS SUMMARY | 2019-10-14 17:58 | XMS REPORT | Summary of Care ---
Author Author [facility] Organization [facility] Address Unknown Phone Unavailable Encounter JUSTIN Valero(ZULEYKA) [id number] Date(s): 03/18/16 - 03/18/16 [facility] [address] [place] [address]- [phone] Discharge Disposition: Left Without Being Seen Attending Physician: Kenya Ruiz DO Vital Signs Most recent to 1 oldest [Reference Range]: Height 160.02 cm (03/18/16 4:20 PM) Temperature Oral 98.2 DegF [96.4-99.1 DegF] (03/18/16 4:20 PM) Blood Pressure 142/69 mmHg [90-140/60-90 mmHg] *HI* (03/18/16 4:20 PM) Respiratory Rate 18 BRMIN [14-20 BRMIN] (03/18/16 4:20 PM) Peripheral Pulse 105 bpm Rate [60-100 bpm] *HI* (03/18/16 4:20 PM) Weight 85.909 kg (03/18/16 4:20 PM) Body Mass Index 33.55 m2 (03/18/16 4:20 PM) Problem List Condition Effective Dates Status Health Status Informan t Arthritis(Confirmed) Resolved High blood Resolved pressure(Confirmed) Hypothyroidism(Confi Resolved rmed) Lumbago(Confirmed) Active Lumbar Active spondylosis(Confirme d) Obesity(Confirmed) Active Stroke(Confirmed) Resolved Allergies, Adverse Reactions, Alerts Substance Reaction Severity Status erythromycin Active penicillins Active Medications Saline Flush 0.9% 10 mL, Route: IVP, Drug Form: INJ, Dosing Weight 85.909, kg, PRN, PRN Line Flush , Start date: 03/18/16 21:55:00 MILK SAMPLER, Duration: 30 day, Stop date: 04/17/16 21:54 :00 MILK SAMPLER Notes: (Same as: BD Posiflush) Start Date: 03/18/16 Stop Date: 03/19/16 Status: Discontinued Results No data available for this section [...]
--- OUTSIDE RECORDS SUMMARY | 2019-10-14 17:58 | XMS REPORT | Summary of Care ---
Author Organization Unknown Address Unknown Phone Unavailable Encounter JUSTIN Valero(ZULEYKA) [id number] Date(s): 07/19/14 - 07/19/14 [facility] [address] [place] [address] Professional Services provided by [facility] [place] [address]- Discharge Disposition: Home Physician Attending: Buddy Ruiz MD Physician Admitting: Buddy Ruiz MD Physician_Referring: Buddy Ruiz MD Vital Signs 1 2 3 Most recent to oldest [Reference Range]: 162.56 cm (07/19/14 7:20 AM) Height 133/61 mmHg (07/19/14 6:00 PM) 160/76 mmHg *HI* (07/19/14 4:45 PM) 164/86 mmHg *HI* (07/19/14 4:30 PM) Blood Pressure [90-140/60-90 mmHg] 14 BRMIN (07/19/14 6:00 PM) 12 BRMIN *LOW* (07/19/14 7:00 AM) Respiratory Rate [14-20 BRMIN] 88.455 kg (07/19/14 7:20 AM) Weight 33.47 m2 (07/19/14 7:20 AM) Body Mass Index Problem List Condition Effective Dates Status Health Status Informan t Arthritis(Confirmed) Resolved High blood Resolved pressure(Confirmed) Hypothyroidism(Confi Resolved rmed) Stroke(Confirmed) Resolved Allergies, Adverse Reactions, Alerts Substance Reaction Severity Status erythromycin Active penicillins Active Medications allopurinol 100 mg oral tablet 100 mg = 1 tab, PO, BID, # 180 tab, 0 Refill(s) Start Date: 07/19/14 Status: Ordered aspirin 81 mg tablet, enteric coated 81 mg = 1 tab, PO, Daily, # 0 tab, 0 Refill(s) Start Date: 07/19/14 Status: Ordered Co Q-10 100 mg oral capsule 100 mg = 1 cap, PO, Daily, 0 Refill(s) Start Date: 07/19/14 Status: Ordered colchicine 0.6 mg oral tablet 0.6 mg, PO, Daily, 0 Refill(s) Start Date: 07/19/14 Status: Ordered Exforge HCT 5 mg-160 mg-25 mg oral tablet 1 tab, PO, Daily, # 30 tab, 0 Refill(s) Start Date: 07/19/14 Status: Ordered nitroglycerin 0.4 mg sublingual tablet 0.4 mg = 1 tab, SL, Q5Min, PRN Chest Pain, 0 Refill(s) Start Date: 07/19/14 Status: Ordered nitroglycerin SL Tab 0.4 mg, 1 tab, Route: SL, Drug form: TAB, Q5Min, Dosing Weight 88.455, kg, PRN C hest Pain, Start date: 07/19/14 16:11:00, Duration: 3 doses or times, Stop date: Limited # of times Notes: (Same as:Nitroquick, Nitrostat)"Do Not Crush" Sublingual tablet Start Date: 07/19/14 Stop Date: 07/20/14 Status: Discontinued Plavix 75 mg oral tablet 75 mg = 1 tab, PO, Daily, # 90 tab, 0 Refill(s) Start Date: 07/19/14 Status: Ordered pravastatin 20 mg oral tablet 20 mg = 1 tab, PO, Bedtime, # 90 tab, 0 Refill(s) Start Date: 07/19/14 Status: Ordered predniSONE 10 mg oral tablet 10 mg = 1 tab, PO, Daily, # 14 tab, 0 Refill(s) Start Date: 07/19/14 Stop Date: 08/02/14 Status: Ordered Synthroid 200 mcg (0.2 mg) oral tablet 200 microgram = 1 tab, PO, Daily, # 90 tab, 0 Refill(s) Start Date: 07/19/14 Status: Ordered Results BLOOD BANK RESULTS Most recent to 1 oldest [Reference Range]: ABO/Rh A POS *Unknown* (07/19/14 7:25 AM) Antibody Scrn Negative (07/19/14 7:25 AM) ELECTROLYTES Most recent to 1 oldest [Reference Range]: Sodium Lvl [135-145 143 mEq/L mEq/L] (07/19/14 7:25 AM) Potassium Lvl 3.9 mEq/L [3.5-5.1 mEq/L] (07/19/14:25 AM) Chloride Lvl [95-109 106 mEq/L mEq/L] (07/19/14:25 AM) CO2 [24-32 mEq/L] 31 mEq/L (07/19/14:25 AM) AGAP [10.0-20.0 9.9 mEq/L mEq/L] *LOW* (07/19/1425 AM) CHEM PANEL Most recent to 1 oldest [Reference Range]: Creatinine Lvl 1.2 mg/dL [0.5-1.4 mg/dL] (07/19/14:25 AM) eGFR 42 mL/min/1.73m2 1 *NA* (07/19/14:25 AM) BUN [7-22 mg/dL] 28 mg/dL *HI* (07/19/14:25 AM) Glucose Lvl [70-99 111 mg/dL 2 mg/dL] *HI* (07/19/14:25 AM) Calcium Lvl 9.0 mg/dL [8.5-10.5 mg/dL] (07/19/14:25 AM) Phosphorus [2.5-4.5 3.6 mg/dL mg/dL] (07/19/14:25 AM) Magnesium Lvl 1.9 mg/dL [1.8-2.4 mg/dL] (07/19/14:25 AM) 1Result Comment: The eGFR is calculated [...] values reflect the clinical guidelines of the [place] [employer]. HEMATOLOGY Most recent to 1 oldest [Reference Range]: WBC [3.7-10.4 K/CMM] 7.7 K/CMM (07/19/14 7:25 AM) RBC [4.20-5.40 3.38 M/CMM M/CMM] *LOW* (07/19/1425 AM) Hgb [12.0-16.0 g/dL] 11.6 g/dL *LOW* (07/19/14:25 AM) Hct [36.0-48.0 %] 34.1 % *LOW* (07/19/14:25 AM) MCV [80.0-98.0 fL] 101.0 fL *HI* (07/19/14:25 AM) MCH [27.0-31.0 pg] 34.2 pg *HI* (07/19/14:25 AM) MCHC [32.0-36.0 33.9 g/dL g/dL] (07/19/14 7:25 AM) RDW [11.5-14.5 %] 13.5 % (07/19/14:25 AM) Platelet [133-450 280 K/CMM K/CMM] (07/19/14:25 AM) MPV [7.4-10.4 fL] 7.6 fL (07/19/14:25 AM) Segs [45.0-75.0 %] 68.0 % (07/19/14:25 AM) Lymphocytes 20.2 % [20.0-40.0 %] (07/19/14:25 AM) Monocytes [2.0-12.0 9.2 % %] (07/19/14 7:25 AM) Eosinophils [0.0-4.0 1.9 % %] (07/19/14 7:25 AM) Basophils [0.0-1.0 0.7 % %] (07/19/14 7:25 AM) Segs-Bands # 5.2 K/CMM [1.5-8.1 K/CMM] (07/19/14 7:25 AM) Lymphocytes # 1.5 K/CMM [1.0-5.5 K/CMM] (07/19/14 7:25 AM) Monocytes # [0.0-0.8 0.7 K/CMM K/CMM] (07/19/14 7:25 AM) Eosinophils # 0.1 K/CMM [0.0-0.5 K/CMM] (07/19/14 7:25 AM) Basophils # [0.0-0.2 0.1 K/CMM K/CMM] (07/19/14 7:25 AM) Macrocyte [None 1+ Seen] *ABN* (07/19/14 7:25 AM) PT [12.0-14.7 14.6 seconds seconds] (07/19/14 7:25 AM) INR [0.85-1.17] 1.13 3 (07/19/14 7:25 AM) PTT [22.9-35.8 29.1 seconds 4 seconds] (07/19/14 7:25 AM) 3Interpretive Data: RECOMMENDED RANGES FOR PROTIME INR: 2.0-3.0 for most medical and surgical thromboembolic states. 2.5-3.5 for artificial heart valves and recurrent embolism. INR SHOULD BE USED ONLY FOR PATIENTS ON STABLE ANTICOAGULANT THERAPY. 4Interpretive Data: Heparin Therapeutic Range: 57 - 92 Seconds Immunizations No data available for this section Procedures No data available for this section Social History Social History Type Response Alcohol Never Smoking Status Never smoker; Exposure to T obacco Smoke None; Cigarette Smoking Last 365 Days No; Reg Smoking Cessation Counseli ng No Assessment and Plan No data available for this section
--- OUTSIDE RECORDS SUMMARY | 2019-10-14 17:58 | XMS REPORT | CCD ---
Author Author [facility] Address Unknown Phone Unavailable Care Team Providers Care Watch Assembly Instructor Name Role Phone Natalya Sanford RP Allergies, Adverse Reactions, Alerts Substance Reaction Status penicillins Active Medications Medication Instructions Start Date End Date Status influenza virus 0.5 ml, Route: IM, Drug Form: INJ, 12/08/2008 12/08/2008 Completed vaccine, inactivated ONCE, Start date: 12/08/08 9:00:00, Stop date: 12/08/08 9:00:00 Immunizations Vaccine Date Status influenza virus vaccine, inactivated 12/08/2008 N ot Done
--- OUTSIDE RECORDS SUMMARY | 2019-10-14 17:58 | XMS REPORT | Summary of Care ---
Author Author [facility] Organization [facility] Address Unknown Phone Unavailable Encounter JUSTIN Valero(ZULEYKA) [id number] Date(s): 07/26/15 - 07/26/15 [facility] [address] [place] [address]- Discharge Disposition: Home Attending Physician: Gonzalez King MD Referring Physician: Gonzalez King MD Vital Signs No data available for this section Problem List Condition Effective Dates Status Health Status Informan t Arthritis(Confirmed) Resolved High blood Resolved pressure(Confirmed) Hypothyroidism(Confi Resolved rmed) Stroke(Confirmed) Resolved Allergies, Adverse Reactions, Alerts Substance Reaction Severity Status erythromycin Active penicillins Active Medications No data available for this section Results CHEM PANEL Most recent to 1 oldest [Reference Range]: eGFR 42 mL/min/1.73m2 1 *NA* (07/26/15 10:46 AM) POC Creatinine 1.2 mg/dL [0.5-1.4 mg/dL] (07/26/15 10:46 AM) 1Result Comment: The eGFR is calculated [...] be mul tiplied by the estimated BMI. Immunizations No data available for this section Procedures No data available for this section Social History Social History Type Response Alcohol Never Smoking Status Never smoker; Exposure to T obacco Smoke None; Cigarette Smoking Last 365 Days No; Reg Smoking Cessation Counseli alphonso No Assessment and Plan No data available for this section
--- OUTSIDE RECORDS SUMMARY | 2019-10-14 17:58 | XMS REPORT | Summary of Care ---
Author Author [facility] Address Unknown Phone Unavailable Encounter [facility] Candicentr_radha(FIN) [id number] Date(s): 07/25/16 - 08/23/16 [facility] Discharge Disposition: Home or Self Care Attending Physician: Hiram Tapia MD Vital Signs No data available for [...]
--- OUTSIDE RECORDS SUMMARY | 2019-10-14 17:58 | XMS REPORT | CCD ---
Author Author Auto HARRY Salgado [facility] Address Unknown Phone Unavailable Care Team Providers Care Optical Goods Drill Operator Name Role Phone SanfordVianney CP Allergies, Adverse Reactions, Alerts Substance Reaction Status penicillins Active Medications Medication Instructions Start Date End Date Status influenza virus 0.5 ml, Route: IM, Drug Form: INJ, 12/08/2008 12/08/2008 Completed vaccine, inactivated ONCE, Start date: 12/08/08 9:00:00, Stop date: 12/08/08 9:00:00(Same as: Fluzone) Immunizations Vaccine Date Status influenza virus vaccine, inactivated 12/08/2008 N ot Done
--- OUTSIDE RECORDS SUMMARY | 2019-10-14 17:58 | XMS REPORT | CCD ---
Author Author Auto HARRY Salgado [facility] Address Unknown Phone Unavailable Care Team Providers Care Grocery Clerk Name Role Phone Rola Giordano RP Allergies, Adverse Reactions, Alerts Substance Reaction Status penicillins Active Medications Medication Instructions Start Date End Date Status influenza virus 0.5 ml, Route: IM, Drug Form: INJ, 12/08/2008 12/08/2008 Completed vaccine, inactivated ONCE, Start date: 12/08/08 9:00:00, Stop date: 12/08/08 9:00:00(Same as: Fluzone) Immunizations Vaccine Date Status influenza virus vaccine, inactivated 12/08/2008 N ot Done
--- OUTSIDE RECORDS SUMMARY | 2019-10-14 17:58 | XMS REPORT | Summary of Care ---
Author Author [facility] Address Unknown Phone Unavailable Encounter HQ Cholo_radha(FIN) [id number] Date(s): 08/15/15 - 08/15/15 [facility] [address] [place] [address]- Discharge Disposition: Home Attending Physician: Annie Saenz MD Referring Physician: Annie Saenz MD Vital Signs No data available for [...]
--- OUTSIDE RECORDS SUMMARY | 2019-10-14 17:58 | XMS REPORT | Summary of Care ---
Author Author [facility] Organization [facility] Address Unknown Phone Unavailable Encounter HQ Anjum(FIN) [id number] Date(s): 11/23/18 - 11/23/18 [facility] [address] [place] [address]- [phone] Discharge Disposition: Home or Self Care Attending Physician: Gonzalez King MD Vital Signs No data available for this section Problem List Condition Effective Dates Status Health Status Informan t CVA (cerebral Resolved vascular accident)(Confirmed) Gout(Confirmed) Resolved HTN Resolved (hypertension)(Confi rmed) Hypothyroidism(Confi Resolved rmed) Lumbago(Confirmed) Active Lumbar Active spondylosis(Confirme d) Obesity(Confirmed) Active Rheumatoid Resolved arthritis(Confirmed) Allergies, Adverse Reactions, Alerts Substance Reaction Severity Status penicillins Active erythromycin Active Medications No data available for this section Results No data available for this section Immunizations No data available for this section Procedures Procedure Date Related Diagnosis Body Site Status Cholecystectomy Completed Social History Social History Type Response Alcohol Never Smoking Status Never smoker; Exposure to T obacco Smoke None; Cigarette Smoking Last 365 Days No; Reg Smoking Cessation Counseli ng No entered on: 12/02/16 Assessment and Plan No data available for this section
--- OUTSIDE RECORDS SUMMARY | 2019-10-14 17:58 | XMS REPORT | Summary of Care ---
Author Organization Unknown Address Unknown Phone Unavailable Encounter HQ Encntr_radha(FIN) [id number] Date(s): 10/31/13 - 10/31/13 [facility] [address] [place], [place] [id number] [place] [address] Discharge Disposition: Home Physician Attending: Annie Saenz MD Physician_Referring: Annie Saenz MD Reason for Visit CAROTID Problem List Condition Effective Dates Status Health Status Informan t Arthritis(Confirmed) Resolved High blood Resolved pressure(Confirmed) Hypothyroidism(Confi Resolved rmed) Stroke(Confirmed) Resolved Allergies, Adverse Reactions, Alerts Substance Reaction Severity Status penicillins Active Medications No data available for this section Medications Administered During Your Visit No data available for this section Immunizations No data available for this section Social History Social History Type Response
--- OUTSIDE RECORDS SUMMARY | 2019-10-14 17:58 | XMS REPORT | Summary of Care ---
Author Author [facility] Organization [facility] Address Unknown Phone Unavailable Encounter JUSTIN Valero(FIN) [id number] Date(s): 09/06/18 - 09/06/18 [facility] [address] [place] [address]- Discharge Disposition: Home or Self Care Attending [...]
--- OUTSIDE RECORDS SUMMARY | 2019-10-14 17:58 | XMS REPORT | Continuity of Care Document ---
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 Hyperlipidemia; Comparison: None TECHNIQUE: Volumetric CT acquisition of of the bilateral lower extremities during arterial phase, obtained from the level of superior mesenteric artery through the level of feet following intravenous contrast. Axial, sagittal and coronal reconstructions, including sagittal and coronal MIP reconstructions, are created at the acquisition workstation. IV contrast: 75 mL of Visipaque with 80 mL of saline push DLP: 750 mGy-cm FINDINGS: Vessels: Distal aorta and iliac bifurcation: Dense calcification present in the origin of the renal vessels and in the infrarenal abdominal aorta. Renal calcifications limit sensitivity for proximal renal stenosis. No severe stenosis suspected. Moderate stenosis of the proximal renal artery on the left may be present. RIGHT: External and internal iliac arteries: Minimal atherosclerosis near the iliac/femoral junction Common femoral: Mild atherosclerotic calcification. No stenosis. Superficial femoral: Unremarkable. Deep femoral: Unremarkable. Popliteal: Image quality degraded at the knee joint by artifact from knee prosthesis. Anterior tibial: Dominant vessel in the lower leg. Continues to dorsalis pedis. Mild to moderate atherosclerotic irregularity. Tibioperoneal trunk: Moderate atherosclerosis proximally with minimal disease more distally Posterior tibial: Smallest trifurcation vessel. Moderate atherosclerotic irregularity. Visible to the mid calf. Suspect reconstitution via peroneal collaterals above the ankle with some supply to the heel. Peroneal: Mild disease. Slightly smaller than anterior tibial. LEFT: External and internal iliac arteries: Unremarkable. Common femoral: Unremarkable. Superficial femoral: Unremarkable. Deep femoral: Unremarkable. Popliteal: Unremarkable. Anterior tibial: Dominant vessel in the lower leg. Peroneal and posterior tibia are both much smaller. Tibioperoneal trunk: Mild atherosclerotic stenosis proximally. Posterior tibial: Small vessel in the proximal calf with moderate atherosclerotic irregularity. Patent to the heel. Peroneal: Small vessel. Patent to the distal calf. No significant support of the posterior circulation identified. Bones: Degenerative changes noted in the lower lumbar spine. This includes severe spondylosis and mild anterolisthesis at L5-S1. Bilateral pars defects suspected at L5 as well. Visualized intra-abdominal/intrapelvic structures: Suspect diverticulosis of the sigmoid colon. IMPRESSION: 1. Dense atherosclerosis in the proximal renal arteries bilaterally. Suspect mild to moderate stenosis of the proximal left renal artery. 2. Dense atherosclerotic calcification i n the distal aorta without stenosis. 3. Bilateral spondylolysis and mild ante rolisthesis with severe associated spondylosis at the L5 level and involving the L5-S1 disc space. 4. Dominant vessels to the feet on eithe r side are the anterior tibials, with distal reconstituted posterior tibial on the right contributing. 5. All 3 trifurcation vessels on the lef t are patent, however the anterior tibial is dominant. 07/26/2015 [facility] Ext Lower Venous Doppler Bilat US EXAM: Bilateral lower extremity venous Doppler ultrasound HISTORY: Bilateral lower extremity leg pain and swelling, difficulty walking COMPARISON: None TECHNIQUE: Sonographic evaluation of the bilateral lower extremity deep veins was performed using high resolution B-mode imaging, along with pulse and color Doppler imaging. FINDINGS: Right lower extremity: The common femoral, femoral and popliteal veins and visualized posterior tibial/calf veins are patent. Left lower extremity: The common femoral, femoral and popliteal veins and visualized posterior tibial/calf veins are patent. IMPRESSION: No deep vein thrombosis is seen in the lower extremities. SL: [id number] 07/26/2015 [facility] Hand 2 views Bilateral DX CLIN ICAL HISTORY: Bilateral hand pain, chronic arthritis. Bilateral hand 2 views. Comparison 04/18/2013. Again noted are advanced arthritic changes with severe joint space narrowing and erosive changes involving the proximal and distal interphalangeal joints of the second through fifth fingers. Bulky marginal osteophytes are present. No periarticular demineralization or erosion otherwise. Advanced arthritic changes are noted at the first carpometacarpal joint bilaterally as well. There is no new fracture, subluxation or lesion otherwise evident since prior study. SL:14 02/22/2015 [facility] Digital Mammo Screening Fredy MA - DIGITAL MAMMO SCREENING FREDY NM BILATERAL DIGITAL SCREENING MAMMOGRAM WITH CAD: 01/02/2015 CLINICAL: Routine. Current study was evaluated with a Computer Aided Detection (CAD) system. Comparison is made to exams dated: 03/15/2013 mammogram, 12/02/2011 mammogram, 09/03/2010 mammogram, 08/06/2009 mammogram, 07/31/2009 mammogram - [facility] and 01/14/2005. There are scattered fibroglandular densities in both breasts. There are benign appearing vascular calcifications and calcifications in both breasts. There also are benign appearing densities in both breasts. Additionally there is a benign appearing intramammary node in the left breast. No significant masses, calcifications, or other findings are seen in either breast. There has been no significant interval change. IMPRESSION: BENIGN There is no mammographic evidence of malignancy. A 1 year screening mammogram is recommended. Annabelle torres/penrad:01/03/2015 11:02:10 Real Estate Lawyer: Olive Houser, [facility] This exam was dictated and interpreted by [id number] for [facility] [place]. letter sent: Normal exam Mammogram BI-RADS: 2 Benign 01/02/2015 [facility] Foot 3 views Bilateral HISTORY : Rheumatoid arthritis. Bilateral feet 3 views each. There is generalized osteopenia. Left foot: There is soft tissue swelling within the left foot. There is what appears to be a nondisplaced fracture deformity of the head of the third metatarsal. No erosive changes are otherwise demonstrated. Right foot: No acute fracture subluxation or lesion. No erosion. SL:13 09/19/2013 [facility] lateral Bilateral BILA TERAL HANDS History: Joint pain at multiple sites. There are no prior studies available for comparison. I. LEFT HAND Two views TECHNIQUE: The left hand was evaluated frontal and lateral projections. FINDINGS: 1. There is involvement of multiple join ts probably degenerative in nature which will be described below. 2. There is severe narrowing of the dist al interphalangeal joints of the left index finger, left middle finger, and left ring finger. There is marked joint space narrowing and osteophyte formation. There are mild similar changes involving the proximal interphalangeal joints of the left index, ring, and the distal interphalangeal joint of the left little finger. There is minimal degenerative change involving the thumb interphalangeal joint and distal interphalangeal joint of the little finger. There are our minimal valgus deformities involving the proximal interphalangeal joints of the left and fourth fingers. 3. There is mild narrowing of the metaca rpophalangeal joints of the left thumb and left fourth and fifth metacarpal phalangeal joints. There is no significant osteophyte formation. 4. There are severe degenerative change involving the basal thumb joint. There is marked narrowing of the joint space and mild subluxation. 5. There is a small dystrophic calcifica tion adjacent to the ulnar aspect of the proximal interphalangeal joint of the left middle finger. There are no other dystrophic calcifications. 6. There is no evidence of fracture, dis location, or acute change. 7. There are no destructive lesions. 8. Osteopenia. 9. No radiopaque soft tissue foreign bod y is identified. II. RIGHT HAND (3 views) TECHNIQUE: The right hand was evaluated frontal and lateral projections. FINDINGS: 1. There is involvement of multiple join ts probably degenerative in nature which will be described below. 2. There is very severe narrowing and os teophyte formation involving the proximal interphalangeal joints of the right second and fourth fingers. There is severe narrowing of the joint spaces and mild to moderate osteophyte formation involving the distal interphalangeal joint of the right index finger, proximal interphalangeal joint of the right middle finger, distal interphalangeal joint of the right fourth finger. There is mild narrowing of the interphalangeal joint of the right thumb and interphalangeal joints of the right little finger. There are mild valgus deformities involving the proximal interphalangeal joints of the right second, third, and fourth fingers. 3. There is mild narrowing of the metaca rpal phalangeal joints of the right second finger. There is minimal narrowing of the remainder of the metacarpal phalangeal joints. There is no significant osteophyte formation. 4. There are moderate degenerative alvarado es involving the right basal thumb joint. There is moderate narrowing of the joint space and minimal subluxation. 5. There are no dystrophic calcification s. 6. There is no evidence of fracture, dis location, or acute change. 7. There are no destructive lesions. 8. Osteopenia. 9. No radiopaque soft tissue foreign bod y is identified. SL: 13 Kolton Guerrero M.D. 04/18/2013 [facility] Digital Mammo Screening Fredy MA - DIGITAL MAMMO SCREENING FREDY NM BILATERAL DIGITAL SCREENING MAMMOGRAM WITH CAD: 03/15/2013 CLINICAL: Routine. Current study was evaluated with a Computer Aided Detection (CAD) system. Comparison is made to exams dated: 12/02/2011 mammogram, 09/03/2010 mammogram, 08/06/2009 mammogram, 07/31/2009 mammogram and 01/11/2007 mammogram - [facility]. There are scattered fibroglandular elements in both breasts that could obscure a lesion on mammography. There are benign appearing vascular calcifications and calcifications in both breasts. There also are benign appearing densities in both breasts. Additionally there is a benign appearing intramammary node in the left breast. No significant masses, calcifications, or other findings are seen in either breast. There has been no significant interval change. IMPRESSION: BENIGN There is no mammographic evidence of malignancy. A screening mammogram in one year is recommended. Annabelle torres/penrad:03/17/2013 07:59:45 Real Estate Lawyer: Olive Houser, [facility] This exam was dictated and interpreted by [id number] at [facility] [place], SL 13. letter sent: Normal exam Mammogram BI-RADS: 2 Benign 03/15/2013 [facility] Abdomen complete US ABDOMEN UL TRASOUND: COMPARISON: CT abdomen 02/21/2008 TECHNIQUE: Multiple static transabdominal images from an abdomen ultrasound are submitted for review. FINDINGS: Heterogeneous increase in echogenicity of liver suggesting diffuse fatty infiltration and/or nonspecific hepatocellular disease. Status post cholecystectomy. Common hepatic duct measures 6 mm. Few scattered splenic granulomata. Spleen is normal in size The kidneys are comparable in size and reveal no gross masses or any evidence for hydronephrosis. Maximal sagittal diameter of the right kidney is 10 cm and the left kidney is 10.2 cm. There is moderate loss of cortical volume. 1.4 cm cyst is visualized in the lower pole of right kidney with a 2.8 cm cyst visualized in the lower pole of left kidney Bowel gas curtails evaluation of midline structures, but the visualized portions of the pancreas, aorta and IVC demonstrate normal morphology. No free fluid is present in the upper abdomen. IMPRESSION: Bilateral renal cysts. Loss of cortical volume noted in both kidneys. Findings consistent with medical renal disease. Status post cholecystectomy. No evidence for intrahepatic or extrahepatic bile duct dilation. Findings suggestive of mild fatty infiltration of liver. No other significant sonographic abnormality is noted in the abdomen. SL:13 11/23/2012 [facility] Consultation Notes No Data Provided for This Section Discharge Summaries No Data Provided for This Section History and Physicals No Data Provided for This Section Vital Signs Vital Sign Value Date Comments Source Heart Rate 61 12/03/2016 [facility] Respitory Rate 18 12/03/2016 [facility] Systolic (mm Hg) 158 12/03/2016 [facility] Diastolic (mm Hg) 84 12/03/2016 [facility] Temperature Oral (F) 97.6 F 12/03/2016 [facility] Systolic (mm Hg) 149 12/03/2016 [facility] Diastolic (mm Hg) 78 12/03/2016 [facility] Respitory Rate 18 12/03/2016 [facility] Heart Rate 51 12/03/2016 [facility] Temperature Oral (F) 97.5 F 12/03/2016 [facility] Systolic (mm Hg) 173 12/03/2016 [facility] Diastolic (mm Hg) 75 12/03/2016 [facility] Temperature Oral (F) 97.8 F 12/03/2016 [facility] Respitory Rate 18 12/03/2016 [facility] Heart Rate 67 12/03/2016 [facility] BMI Calculated 31.48 12/02/2016 [facility] Height 162.56 cm 12/02/2016 [facility] Weight 83.182 12/02/2016 [facility] Weight 83.182 12/02/2016 [facility] Height 162.56 cm 12/02/2016 [facility] BMI Calculated 31.48 12/02/2016 [facility] Weight 85.909 03/18/2016 [facility] BMI Calculated 33.55 03/18/2016 [facility] Temperature Oral (F) 98.2 F 03/18/2016 [facility] Heart Rate 105 03/18/2016 [facility] Respitory Rate 18 03/18/2016 [facility] Systolic (mm Hg) 142 03/18/2016 [facility] Diastolic (mm Hg) 69 03/18/2016 [facility] Height 160.02 cm 03/18/2016 [facility] Systolic (mm Hg) 133 07/19/2014 [facility] Diastolic (mm Hg) 61 07/19/2014 [facility] Respitory Rate 14 07/19/2014 [facility] Systolic (mm Hg) 160 07/19/2014 [facility] Diastolic (mm Hg) 76 07/19/2014 [facility] Systolic (mm Hg) 164 07/19/2014 [facility] Diastolic (mm Hg) 86 07/19/2014 [facility] BMI Calculated 33.47 07/19/2014 [facility] Weight 88.455 07/19/2014 [facility] Height 162.56 cm 07/19/2014 [facility] Respitory Rate 12 07/19/2014 [facility] Weight 87.273 01/09/2014 [facility] BMI Calculated 32.02 01/09/2014 [facility] Height 165.1 cm 01/09/2014 [facility] Temperature Oral (F) 97.4 F 01/09/2014 [facility] Respitory Rate 20 01/09/2014 [facility] Heart Rate 79 01/09/2014 [facility] Diastolic (mm Hg) 85 01/09/2014 [facility] Systolic (mm Hg) 150 01/09/2014 [facility] Diastolic (mm Hg) 72 05/07/2013 [facility] Respitory Rate 16 05/07/2013 [facility] Systolic (mm Hg) 168 05/07/2013 [facility] Temperature Oral (F) 98.1 F 05/07/2013 [facility] Heart Rate 75 05/07/2013 [facility] Height 165.1 cm 05/07/2013 [facility] BMI Calculated 33.02 05/07/2013 [facility] Weight 90 0 05/07/2013 [facility] Diastolic (mm Hg) 74 05/07/2013 [facility] Heart Rate 77 05/07/2013 [facility] Temperature Oral (F) 97.9 F 05/07/2013 [facility] Systolic (mm Hg) 173 05/07/2013 [facility] Respitory Rate 20 05/07/2013 [facility] Encounters Location Location Details Encounter Type Encounter Number Reason For Visit Attending Provider ADM Date DC Date Status Source [facility] Outpatient [id number] 789.06 ABDOMINAL PAIN, EPIGASTRIC / 783.21 AMIR RASHMI 11/23/2012 Active [facility] Outpatient [id number] SCREENING ISAM BALAT 03/15/2013 03/15/2013 Active [facility] Outpatient [id number] 719.49 JACKELINE CARABALLO 04/18/2013 04/18/2013 Active [facility] Emergency [id number] FRANCESCO SCHROEDER 05/07/2013 05/07/2013 Discharged [facility] [id number] Francesco Parraeal 05/07/2013 05/07/2013 [facility] Outpatient [id number] Jackelinerosie Caraballo 09/19/2013 09/20/2013 [facility] Outpatient [id number] Annie Majmundar 10/31/2013 11/01/2013 [facility] Emergency Center [id number] Kunal Templeton 01/09/2014 01/09/2014 [facility] Outpatient [id number] Buddy Ruiz 07/19/2014 07/20/2014 [facility] Outpatient [id number] Isam Balat 01/02/2015 01/03/2015 [facility] Outpatient [id number] Jackeline Caraballo 02/22/2015 02/23/2015 [facility] Outpatient [id number] Gonzalez King 07/26/2015 07/27/2015 [facility] Outpatient [id number] Annie Majmundar 08/15/2015 08/16/2015 [facility] Outpatient [id number] HIRAM MCGARRY 01/23/2016 Active [facility] Emergency [id number] Kenya Ruiz 03/18/2016 03/19/2016 [facility] OP Therapy Patients [id number] Hiram Mcgarry 07/25/2016 08/24/2016 [facility] Observation [id number] Gonzalez King 12/02/2016 12/03/2016 [facility] Outpatient [id number] Jackeline Rashmi 10/19/2017 10/20/2017 [facility] Outpatient [id number] Gonzalez King 09/06/2018 09/07/2018 [facility] Outpatient [id number] Gonzalez Christine 11/23/2018 11/24/2018 [facility] Outpatient [id number] Jackeline Rashmi 04/19/2019 04/20/2019 [facility] Procedures Procedure Code Date Perfomer Comments Source Emergency department visit for the evalu ation and management of a patient, which requires these 3 rivera components: An expanded problem focused history; An expanded problem focused examination; and Medical decision making of moderate complexity. Counseling [id number] 05/07/2013 [facility] Cholecystectomy [id number] [facility] st Assessment and Plan Assessment and Plan Date Source Extracted from:Title: Clinical Document Author: Buddy Ruiz MD Date: 12/03/16 Progress Note -[facility]- Jose Raul Dahl and [facility] (Office) [address] [address], [address] (ph) [phone] Attending: Gonzalez King MD Service: Internal Medicine Code status: None Specified=FULL CODE Reason for Admission: VOLUME OVERLOAD Working DRG: None Documented Isolation: None Documented Consulting Physicians: Buddy Ruiz MD Office: Service: Cardiology Gonzalez King MD Office: Service: Medicine Subjective No acute overnight Allergies: [...] no polyuria nor polydipsia Psychiatric: at baseline Vitals Tmp(F) Tmp(C) Ttype BP MAP Pulse RR SpO2 FIO2 ETCO2 12/03 06:33 97.6 36.44 oral 158/84 --- 61 18 99 --- --- 12/03 03:55 97.5 36.39 oral 149/78 --- 51 18 96 --- --- 12/02 23:09 97.8 36.56 oral 173/75 --- 67 18 97 --- --- 12/02 19:28 97.5 36.39 oral 128/80 --- 67 16 98 --- --- 12/02 16:01 97.7 36.50 oral 173/81 --- 58 17 97 --- --- 24 Hr Tmax: 98.2F (36.78c) at 12/02 11:1 7 Vital Signs are the last 5 in the past 48 hours. 24 Hr Tmin: 97.5F (36.39c) at 12/03 03: 55 Weights are the last 5 in 60 days, plus initial. Date Wt(kg) Wt(lb) Ht(cm) Ht(in) Method BMI BSA 12/02 (initial) 83.18 183.00 Estimated 31.5 1.94 12/02 162.56 64.00 Stated (no point of care glucose results charte d in last 24 hours) Most Recent Scores: 12/03/16 Chacon Paige Fall Score 9 12/02/16 Ratie Coma Score 15 12/02/16 Harlan Score 19 12/02/16 Pain Intensity NRS (0-10) 0 Lines, Tubes, and Drains: 12/02/2016 11:49 Peripheral Lines: Hand Right 20 gauge Over the needle catheter (no surgical procedures documented) 24hr Labs 12/02 1529 UA Color Ltyellow UA Turbidity Clear UA Spec Grav 1.011 UA pH 5.0 UA Protein Negative UA Glucose Negative UA Ketones Negative UA Bili Negative UA Blood Negative UA Urobilinogen <=1.0 UA Nitrite Negative UA Leuk Est Negative UA RBC 1 UA WBC 1 UA Sq Epi Occasional UA Hyal Cast 1 12/02 1149 Sodium Lvl 141 Potassium Lvl 3.8 Chloride Lvl 108 CO2 26 AGAP 10.8 Glucose Lvl 96 Creatinine Lvl 1.40 BUN 31 H B/C Ratio 22 Total Protein 7.8 Albumin Lvl 3.2 L Globulin 4.6 H A/G Ratio 0.7 Calcium Lvl 8.2 L ALT 12 AST 15 Alk Phos 61 Bili Total 0.8 eGFR 34 Total CK 58 Troponin-I <0.02 CK MB 1.5 CK MB Index 2.6 H BNP 243 H WBC 7.8 RBC 3.10 L Hgb 10.6 L Hct 31.7 L MCV 102.1 H MCH 34.1 H MCHC 33.4 RDW 13.9 Platelet 234 MPV 8.4 Segs 72.4 Monocytes 5.5 Lymphocytes 19.2 L Eosinophils 1.7 Basophils 1.2 H Segs-Bands # 5.6 Lymphocytes # 1.5 Monocytes # 0.4 Eosinophils # 0.1 Basophils # 0.1 Macrocyte 1+ Physical Exam: HEENT: PERRLA Neurological: A&O x 3, no confusion Cardiac: S1 and S2, no murmurs, denies chest pain, sinus [...] 2. DISPOSITION: We will follow as O/p 12/03/2016 [facility] Plan of Care No Data Provided for This Section Social History Social History Date Source Social History TypeResponse Alcohol Never Smoking Status Never smoker; Exposure to Tobacco Smoke None; Cigarette Smoking Last 365 Days No; Reg Smoking Cessation Counseling No 07/19/2014 [facility] Social History TypeResponse Alcohol Never Smoking Status Never smoker; Exposure to Tobacco Smoke None; Cigarette Smoking Last 365 Days No; Reg Smoking Cessation Counseling No entered on: 12/02/16 07/19/2014 [facility] Social History TypeResponse Alcohol Never Smoking Status Never smoker; Exposure to Tobacco Smoke None; Cigarette Smoking Last 365 Days No; Reg Smoking Cessation Counseling No 07/19/2014 [facility] Family History No Data Provided for This Section Advance Directives No Data Provided for This Section Functional Status No Data Provided for This Section
--- OUTSIDE RECORDS SUMMARY | 2019-10-14 17:58 | XMS REPORT | Summary of Care ---
Author Author [facility] Organization [facility] Address Unknown Phone Unavailable Encounter HQ Anjum(FIN) [id number] Date(s): 10/19/17 - 10/19/17 [facility] [address] [place] [address]- Encounter Diagnosis Pain in left foot (Final) - 10/24/17 Discharge Disposition: Home or Self Care Attending Physician: Vianney Sanford MD Vital Signs No data available for [...]
--- OUTSIDE RECORDS SUMMARY | 2019-10-14 17:58 | XMS REPORT | Summary of Care ---
Author Organization Unknown Address Unknown Phone Unavailable Encounter HQ Roser_radha(ZULEYKA) [id number] Date(s): 09/19/13 - 09/19/13 [facility] [address] [place], [place] [address] [facility] Discharge Disposition: Home Physician Attending: Vianney Sanford MD Physician Admitting: Vianney Sanford MD Reason for Visit 714.0 790.1 274.9 715.80 719.47 Problem List Condition Effective Dates Status Health [...]
--- OUTSIDE RECORDS SUMMARY | 2019-10-14 17:58 | XMS REPORT | Summary of Care ---
Author Author [facility] Organization [facility] Address Unknown Phone Unavailable Encounter HQ Roser_radha(FIN) [id number] Date(s): 02/22/15 - 02/22/15 [facility] [address] [place] [address]- Discharge Disposition: Home Attending Physician: Vianney Sanford MD Vital Signs [...]
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
--- OUTSIDE RECORDS SUMMARY | 2019-10-14 17:58 | XMS REPORT | Summary of Care ---
Author Author [facility] Organization [facility] Address Unknown Phone Unavailable Encounter JUSTIN Valero(ZULEYKA) [id number] Date(s): 04/19/19 - 04/19/19 [facility] [address] [place] [address]- [phone] Discharge Disposition: Home or Self Care Attending [...]
--- OUTSIDE RECORDS SUMMARY | 2019-10-14 17:59 | XMS REPORT | Continuity of Care Document ---
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 12/03/2016 [facility] Plan of Care No Data Provided for This Section Social History Social History Date Source Social History TypeResponse Alcohol Never Smoking Status Never smoker; Exposure to Tobacco Smoke None; Cigarette Smoking Last 365 Days No; Reg Smoking Cessation Counseling No 07/19/2014 [facility] Social History TypeResponse Alcohol Never Smoking Status Never smoker; Exposure to Tobacco Smoke None; Cigarette Smoking Last 365 Days No; Reg Smoking Cessation Counseling No entered on: 12/02/16 07/19/2014 [facility] Social History TypeResponse Alcohol Never Smoking Status Never smoker; Exposure to Tobacco Smoke None; Cigarette Smoking Last 365 Days No; Reg Smoking Cessation Counseling No 07/19/2014 [facility] Family History No Data Provided for This Section Advance Directives No Data Provided for This Section Functional Status No Data Provided for This Section
== END 2019-10-08 13:43 | disposition expired | DRG 698 ==
LOC: ER 20:30 → ERHOLD 22:22 → MED/SURG 10-08 02:48
PROVIDERS: ADMIT Internal Medicine; ATTEND Internal Medicine
DX: T83.518A Infection and inflammatory reaction due to other urinary catheter, initial encounter (principal); N18.6 End stage renal disease; A41.9 Sepsis, unspecified organism; R65.20 Severe sepsis without septic shock; G93.41 Metabolic encephalopathy; I12.0 Hypertensive chronic kidney disease with stage 5 chronic kidney disease or end stage renal disease; M62.82 Rhabdomyolysis; E87.0 Hyperosmolality and hypernatremia; R00.1 Bradycardia, unspecified; Z86.73 Personal history of transient ischemic attack (TIA), and cerebral infarction without residual deficits; I48.91 Unspecified atrial fibrillation; Z79.01 Long term (current) use of anticoagulants; Z99.2 Dependence on renal dialysis; F32.9 Major depressive disorder, single episode, unspecified; Z11.59 Encounter for screening for other viral diseases
CPT/HCPCS: 36415; 71045; 80048; 80053; 82550; 82553; 82948; 83605; 84484; 85025; 87040; 87071; 87205; 99285; J7030; J7070; U0002